=== PATIENT | male | born 1945 | race Caucasian/White ===

== ENCOUNTER → 2016-08-22 07:49 | Outpatient (CLI) | payer MEDICARE, OTHER | LOC: D.MRI 07:49 | DX: M54.2 Cervicalgia (principal); R20.0 Anesthesia of skin ==

== ENCOUNTER → 2016-09-01 14:55 | Outpatient (CLI) | payer MEDICARE, OTHER ==
[~2016-09-01 14:55] MED LIST: ASPIRIN EC325 M1 PO; FLOMAX0.4 MG PO; HYDROCODONE-APA1 TAB PO; NIASPAN500 MG PO; PRINIVIL20 MG PO; TENORMIN25 MG PO; VALIUM SYR10 MG/2 ML PO; ZANTAC150 MG PO; ZOCOR40 MG PO
== END | disposition home or self-care (01) ==
LOC: D.US 14:55
DX: I74.5 Embolism and thrombosis of iliac artery (principal)

== ENCOUNTER → 2016-10-16 14:47 | Outpatient (CLI) | payer MEDICARE, OTHER | END | disposition home or self-care (01) | LOC: D.CT 14:47 | DX: M48.02 Spinal stenosis, cervical region (principal) ==

== ENCOUNTER 2016-11-19 05:25 | Inpatient (IN) | payer MEDICARE, OTHER ==
[2016-11-17 16:58] LABS: BASOPHILS 0.7 % (0-2); EOSINOPHILS 1.2 % (0-7); HEMATOCRIT 45.1 % (42.0-54.0); HEMOGLOBIN 15.4 g/dL (13.5-17.5); IMMATURE GRANULOCYTES 0.6 % (0-5); LYMPHOCYTES 49.5 % (15-50); MCH 32.3 pg (26.0-34.0); MCHC 34.1 g/dL (31.0-37.0); MCV 94.5 fL (80.0-100.0); MEAN PLATELET VOLUME 10.5 fL (7.4-10.4); MONOCYTES 11.2 % (2-11); NEUTROPHILS 36.8 % (40-80); PLATELET COUNT 136 10x3/uL (130-400); RBC 4.77 10x6/uL (4.20-6.10); RDW 12.5 % (11.5-14.5); WBC 7.3 10x3/uL (4.8-10.8)
[2016-11-17 17:06] LABS: APPEARANCE CLEAR (CLEAR); BILIRUBIN NEGATIVE (NEGATIVE); COLOR YELLOW (YELLOW); GLUCOSE NEGATIVE (NEGATIVE); KETONE NEGATIVE (NEGATIVE); LEUKOCYTE ESTERASE NEGATIVE (NEGATIVE); NITRITE NEGATIVE (NEGATIVE); PROTEIN NEGATIVE (NEGATIVE); SPECIFIC GRAVITY 1.015 (1.005-1.020); UROBILINOGEN NORMAL (NORMAL)
[2016-11-17 17:22] LABS: ANION GAP 11.1 mmol/L (8-16); CALCIUM 9.1 mg/dL (8.5-10.1); CARBON DIOXIDE 29.2 mmol/L (21.0-32.0); CREATININE - SERUM 1.2 mg/dL (0.6-1.3); POTASSIUM - SERUM 4.3 mmol/L (3.5-5.1)
[2016-11-19] VITALS (14 sets, daily range): BP systolic 126–179; BP diastolic 63–88; Ht 172.7 cm; Wt 71.8 kg
[~2016-11-19] VITALS: Ht 172.7 cm; Wt 71.8 kg
[~2016-11-19 05:25] MED LIST changes: -VALIUM SYR10 MG/2 ML PO
--- NOTE | 2016-11-19 14:45 | NUR ---
RECIEVED PT FROM PACU. VSS AT THIS TIME, SLIGHTLY HYPERTENSIVE WITH SBP OF 172. PT AAO, SLIGHTLY DROWSY BUT ABLE TO FOLLOW COMMANDS APPROPRIATLY. RECIEVING O2 AT 2L VIA NC. NUERO CHECKS COMPLETE WITH NO ISSUES NOTED. INCISION TO ANTERIOR NECK SEALED WITH DERMABOND. NO SWELLING OR BLEEDING NOTED TO SITE. CHRISTOPH DRAIN LOCATED NEXT TO INCISION WITH BLOODY DRAINAGE. BULB COMPRESSED. FULL ASSESSMENT COMPLETE PER FLOWSHEET. CALL LIGHT IN REACH. BED IN LOW POSITION. WILL CONT TO ASSESS.
--- NOTE | 2016-11-19 14:45 | NUR ---
[employer]EN[employer] CALLED FOR SOFT CERVICAL COLLAR.
--- NOTE | 2016-11-19 15:00 | NUR ---
SAPNA LORENZO PAGED IN REGARDS TO NEW ADMITS FROM OR TO CVICU.
--- NOTE | 2016-11-19 16:28 | NUR ---
FAMILY AT BEDSIDE. UPDATE PROVIDED. VSS REMAIN STABLE. HYDROCODONE ADMINISTERED PER EMAR FOR INCISIONAL PAIN. WILL REASSESS PAIN.
--- NOTE | 2016-11-19 18:00 | NUR ---
FAMILY AT BEDSIDE. PT DENIES NEEDS. BEDSIDE TABLE IN REACH WITH PERSONAL BELONGING'S AND CALL LIGHT. WILL CONT TO ASSESS.
--- NOTE | 2016-11-19 19:00 | NUR ---
REPORT RECEIVED AND ASSESSMENT COMPLETED PT OF DR YEBOAH. C4-C6 ACF. PT HAS INCISION ON MID NECK WITH DERMABOND PRESENT. NO SIGNS OF INFECTION CDI. CHRISTOPH DRAIN IN LEFT NECK WITH 20ML OUT DURING DAY SHIFT. ALL NEURO CHECKS WNL AND VSS. WILL MONITOR FOR CHANGES THROUGHOUT SHIFT.
--- NOTE | 2016-11-19 21:00 | NUR ---
2100 MEDS GIVEN. NO OTHER CHANGES IN STATUS AT THIS TIME. VSS. WILL CONTINUE TO MONITOR THROUGHOUT SHIFT
--- NOTE | 2016-11-19 23:00 | NUR ---
REASSESSMENT COMPLETED SEE FLOWSHEET FOR FULL DETAILS. PT HAS HAD SOME PAC'S AND PVC'S SPORADICALLY SINCE LAST ASSESSMENT. SINUS ARRHYTHMIA WILL REPORT TO DAY SHIFT IN AM AND MONITOR CLOSELY FOR NEED TO CONTACT PHYSICIAN. VSS.
[2016-11-20] VITALS (13 sets, daily range): BP systolic 136–158; BP diastolic 56–85
--- NOTE | 2016-11-20 01:13 | NUR ---
NO CHANGE IN STATUS AT THIS TIME. PT RESTING IN ROOM. VSS. PT STILL HAVING ARRHYTHMIAS THOUGH THEY ARE NOT WORSENING. WILL CONTINUE TO MONITOR
--- NOTE | 2016-11-20 03:08 | NUR ---
REASSESSMENT COMPLETED SEE FLOWSHEET FOR FULL DETAILS. SINCE LAST ASSESSMENT PT HAS HAD INCREASED AMOUNTS OF PVC'S WILL EVALUATE POTASSIUM AND MAG LEVELS WITH LABS. NO OTHER CHANGES AT THIS TIME. VSS WILL MONITOR
[2016-11-20 03:31] LABS: ALBUMIN 3.4 g/dL (3.4-5.0); ANION GAP 14.9 mmol/L (8-16); BILIRUBIN - TOTAL 0.4 mg/dL (0.2-1.3); CALCIUM 8.9 mg/dL (8.5-10.1); CARBON DIOXIDE 25.5 mmol/L (21.0-32.0); CREATININE - SERUM 1.2 mg/dL (0.6-1.3); POTASSIUM - SERUM 4.4 mmol/L (3.5-5.1); PROTEIN - SERUM 6.9 g/dL (6.4-8.2)
--- NOTE | 2016-11-20 05:11 | NUR ---
I&O COLLECTED. 5M OUT OF CHRISTOPH DRAIN FOR SHIFT. 20 ML OUT OF DRAIN DURING DAY SHIFT. ALL NEURO CHECKS STILL NORMAL. WILL CONTINUE TO MONITOR.
[2016-11-20] MEDS ORDERED: VALIUM SYR10 MG/2 ML PO (07:12)
[2016-11-20] MEDS ORDERED: HYDROCODONE-APA1 TAB PO (07:13)
--- NOTE | 2016-11-20 07:15 | NUR ---
REPORT RECIEVED FROM YARD ASSOCIATE NURSE. PT RESTING IN BED QUIETLY. INCISION TO ANTERIOR NECK INTACT AND OPEN TO AIR. CHRISTOPH DRAIN TO LEFT SIDE OF INCISION. COMPRESSED AND DRAINING SEROUS DRAINAGE. NUERO CHECKS COMPLETE WITHIN NORMAL LIMITS. CALL LIGHT IN REACH. FULL ASSESSMENT DOCUMENTED IN FLOWSHEET. REFER FOR DETAIL. WILL CONT TO ASSESS FOR CHANGES THROUGHOUT SHIFT.
--- NOTE | 2016-11-20 09:00 | NUR ---
FAMILY AT BEDSIDE. DENIES NEEDS AT THIS TIME. NO CHANGES NOTED. WILL CONT TO ASSESS.
--- NOTE | 2016-11-20 11:00 | NUR ---
AWAITNG CONSULATION FROM CARDIOLOGY.
--- NOTE | 2016-11-20 14:36 | NUR ---
* Is the patient Alert and Oriented? Yes 0 * How many steps to enter\exit or inside your home? 0 0 * PCP Dr. Yen 0 * [facility] on 0 * Preadmission Environment Home with Family 0 * ADLs Independent 0 * List name and contact numbers for known caregivers / representatives who currently or will assist patient after discharge: Spouse - Fernanda Flanagan [phone] 0 * Additional services required to return to the preadmission environment? No 0 * Can the patient safely return to the preadmission environment? Yes 0 * Has this patient been hospitalized within the prior 30 days at any hospital? No 11/20/2016 14:36 DCP: Discharge Planning Patient Name: MARBIN SAMSON Admission Status: Elective Accout number: [id number] Admission Date: 11-19-2016 : 1945 Admission Diagnosis: Attending: TANIYA Current LOS: 1 Anticipated DC Date: 11-20-2016 Planned Disposition: Home Primary Insurance: MEDICARE A & B Discharge Planning Comments: CM met with patient to assess dc plans/needs. Patient states he lives at home with his . He reports he is independent with all ADL's & IADL's. He does not use any assistive devices for mobility & has not had home health services in the past. At discharge, he will return home with his . No needs identified or verbalized at this time. CM will follow. Spray Painter Helper: Louise Lam
--- NOTE | 2016-11-20 14:45 | NUR ---
DR. MACHADO AT BEDSIDE FOR CARDIOLOGY CONSULT.
--- NOTE | 2016-11-20 14:50 | NUR ---
DR. MARQUIS STATED TO PT TO ONLY TAKE HALF OF HIS 25MG PERSCRIPTION FOR ATENALOL DUE TO HIS BRADYCARDIA. DOCTOR DID NOT WRITE NEW SCRIPT. STATED TO FOLLOW UP WITH HIM IN ONE MONTH.
--- NOTE | 2016-11-20 15:15 | NUR ---
DENIED QUESTIONS REGARDING D/C INSTRUCTIONS. TAKEN TO VEHICLE PER W/C.
--- NOTE | 2016-11-20 15:30 | NUR ---
DR. YEBOAH CALLED AND CLARIFIED RX FOR VALIUM. ORDERED AN INJ AND MEANT TO BE ORDERED PO PILL. PHARMACIST CALLED WITH CLARIFICATION.
== END 2016-11-20 15:30 | disposition home or self-care (01) | DRG 30 ==
LOC: D.SDCHOLD 05:25 → D.CVICU 05:25 → D.SDCHOLD 08:45 → D.CVICU 14:00
PROVIDERS: ADMIT Neurological Surgery
PROC: 0RG20Z0 (ICD-10-PCS; 2016-11-19)
PROC: 0RB30ZZ Excision of Cervical Vertebral Disc, Open Approach (ICD-10-PCS; principal; 2016-11-19 10:00)
DX: M54.12 Radiculopathy, cervical region (principal); R00.1 Bradycardia, unspecified; I49.3 Ventricular premature depolarization

== ENCOUNTER → 2016-12-26 08:18 | Outpatient (CLI) | payer MEDICARE, OTHER ==
[2016-11-19 14:57] VITALS: BMI 25.0
[~2016-12-26 08:18] MED LIST changes: +VALIUM SYR10 MG/2 ML PO
== END | disposition home or self-care (01) ==
LOC: D.RAD 08:15
DX: M43.22 Fusion of spine, cervical region (principal)

== ENCOUNTER 2017-04-29 09:14 | Outpatient (CLI) | payer MEDICARE, OTHER ==
[~2017-04-29] VITALS: Ht 172.7 cm; Wt 75.0 kg
--- NOTE | ~2017-04-29 | HEMODYNAMI ---
PATIENT:MARBIN SAMSON MEDICAL RECORD: [id number] : 41 LOCATION:[facility] ADMISSION DATE: 04/29/17 Generatedon:04/29/201711:33 Patient name: MARBIN SAMSON Patient #: [id number] SSN: : 1945 Date of study: 04/29/2017 Page: Of Hemodynamic Procedure Report Patient Data Patient Demographics Procedure consent was obtained First Name: MARBIN Gender: Male Last Name: CHAPIN : 1945 Middle Initial: A Age: 72 year(s) Patient #: [id number] Race: Unknown Additional ID: [id number] Contact details [address]: [address] [place] [place] [address] State: [place] City: [place] Zip code: [address] Admission Admission Data Admission Date: 04/29/2017 Admission Time: 9:14 Procedure Procedure Types Cath Procedure Diagnostic Procedure LHC LHC w/Coronaries PCI Procedure Coronary Stent Coronary Stent Initial Coronary Stent Additional Miscellaneous Procedures Moderate Sedation up to 15 minutes Peripheral Cath Diagnostic Procedure Cath Peripheral Ompjw-Xukxkjv-Eqf-Off Procedure Description Procedure Date Procedure Date: 04/29/2017 Procedure Start Time: 11:10 Procedure End Time: 11:31 Procedure Staff Name Function Ector Monteiro MD Performing Physician Maddison Peters RT Monitor Dina Dutta RT Scrub Reji Tavares RN Nurse Sara Ayala RN Nurse Procedure Data Cath Procedure Fluoroscopy Diagnostic fluoroscopy Total fluoroscopy Time: 4.4 time: 4.4 min min Diagnostic fluoroscopy Total fluoroscopy dose: 609 dose: 609 mGy mGy Contrast Material Contrast Material Type Amount (ml) Isovue 300 146 Entry Location Entry Primary Successful Side Size Upsize Upsize Entry Closure Succes sful Closure Location (Fr) 1 (Fr) 2 (Fr) Remarks Device Remarks Femoral Right 5 Fr 6 Fr Exoseal artery Short Estimated blood loss: 10 ml Diagnostic catheters Device Type Used For End Catheter Placement MULTIPACK Pigtail 5 Fr Procedure catheter MULTIPACK JL 4.0 5Fr Procedure catheter MULTIPACK 3DRC 5Fr Procedure catheter Procedure Complications No complications Procedure Medications Medication Administration Route Dosage Oxygen NC 2 l/min Lidocaine 2% added to field 20 Heparin Flush Bag added to field 2 bags (1000units/500ml NS) 0.9% NaCl I.V. 100 ml/hr Fentanyl I.V. 50 mcg Versed I.V. 1 mg Versed I.V. 1 mg Fentanyl I.V. 50 mcg Heparin Bolus I.V. 4000 units Fentanyl I.V. 50 mcg Hemodynamics Rest Pre Cath Intra NCS Post Cath Vital Signs Time Heart Resp SPO2 etCO2 NIBP (mmHg) Rhythm Pain Sedation Rate (ipm) (%) (mmHg) Status Level (bpm) 11:00:18 59 25 100 26.4 179/75(121) NSR 0 (11) 10(A) , No pain 11:04:41 60 16 100 32.5 175/82(142) NSR 0 (11) 10(A) , No pain 11:09:03 61 14 95 37 147/74(114) NSR 0 (11) 10(A) , No pain 11:13:25 66 14 97 2.2 135/63(106) NSR 0 (11) 9(A) , No pain 11:17:39 76 16 96 0 151/74(113) NSR 0 (11) 9(A) , No pain 11:21:55 74 14 97 10.5 130/65(91) NSR 0 (11) 9(A) , No pain 11:26:09 75 16 97 0.7 147/68(115) NSR 0 (11) 10(A) , No pain 11:30:27 71 13 97 2.2 130/63(92) NSR 0 (11) 10(A) , No pain Medications Time Medication Route Dose Verified Delivered Reason Notes Effectiveness by by 10:57:23 Oxygen NC 2 Ector Ruiz used for l/min Cayetano Ayala RN procedure 10:57:30 Lidocaine 2% added 20ml Ector Barney for local to vial Cayetano Monteiro MD anesthetic field 10:57:37 Heparin Flush added 2 Ector Bowmanrey used for Bag to bags Cayetano Monteiro MD procedure (1000units/500ml field NS) 10:57:47 0.9% NaCl I.V. 100 Ector Sara Per physician ml/hr Cayetano Ayala RN 11:08:13 Fentanyl I.V. 50 Ector Ruiz for sedation mcg Cayetano Ayala RN 11:08:23 Versed I.V. 1 mg Ector Ruiz for sedation Cayetano Ayala RN 11:09:43 Versed I.V. 1 mg Ector Ruiz for sedation Cayetano Ayala RN 11:09:56 Fentanyl I.V. 50 Ector Ruiz for sedation mcg Cayetano Ayala RN 11:17:39 Heparin Bolus I.V. 4000 Ector Ruiz for verifi ed units Cayetano Ayala RN anticoagulation with dr monteiro 11:23:29 Fentanyl I.V. 50 Ector Ruiz for sedation mcg Cayetano Ayala RN Procedure Log Time Note 10:56:52 Maddison Peters RT(R) sent for patient. Start room use. 10:56:53 Time tracking: Regular hours 10:56:57 Plan of Care:Hemodynamics will remain stable., Cardiac rhythm will remain stable., Comfort level will be maintained., Respiratory function will remain adequate., Patient/ family verbilizes understanding of procedure., Procedure tolerated without complication., Recovers from procedure without complications.. 10:57:03 Patient received from Pre/Post Procedure Room to CCL 2 Alert and oriented. Tansferred to table in Supine position. 10:57:05 Warm blankets applied, and ed hugger turned on for patient comfort. 10:57:05 Warm blankets applied, and ed hugger turned on for patient comfort. 10:57:05 Correct patient and procedure confirmed by team. 10:57:07 Signed procedure consent form obtained from patient. 10:57:11 Full Disclosure recording started 10:57:22 H&P Date Dictated: 04/29/2017 H&P Addendum completed by physician on day of procedure. (MUST COMPLETE FOR ALL OUTPATIENTS), New H&P dictated by physician.. 10:57:23 Oxygen 2 l/min NC was administered by Sara Ayala RN; used for procedure; 10:57:23 Pre-procedure instructions explained to patient. 10:57:23 Pre-op teaching completed and patient verbalized understanding. 10:57:25 Family in waiting room. 10:57:26 Patient NPO since Midnight. 10:57:30 Lidocaine 2% 20ml vial added to field was administered by Ector Monteiro MD; for local anesthetic; 10:57:36 Is the patient allergic to Iodine/contrast media? No. 10:57:37 Heparin Flush Bag (1000units/500ml NS) 2 bags added to field was administered by Ector Monteiro MD; used for procedure; 10:57:37 Was the patient premedicated? No 10:57:42 Is patient on blood thinner?Yes 10:57:44 ACC The patient was administered the following blood thiners within the last 24 hours: ACCPlavix 10:57:47 0.9% NaCl 100 ml/hr I.V. was administered by Sara Ayala RN; Per physician; 10:57:47 Patient diabetic? No. 10:57:50 Previous problem with sedation/anesthesia? No ? 10:57:52 Snore? Yes 10:57:53 Sleep apnea? No 10:57:54 Deviated septum? No 10:57:54 Opens mouth fully? Yes 10:57:55 Sticks out tongue? Yes 10:57:57 Airway obstruction? No ? 10:58:00 Vital chart was started 10:58:01 Dentures? Yes out 10:58:05 Pre procedure: right dorsailis pedis pulse 1+ Palpable, but thready & weak; easily obliterated 10:58:09 Pre procedure: left dorsailis pedis pulse Doppler 10:58:12 Patient pain scale 0/10 ?. 10:58:21 IV patent on arrival in left wrist with 0.9% NaCl at KVO. 10:58:30 Bilateral groins area was prepped with chlora-prep and draped in sterile fashion 10:58:31 Sharps counted by scrub and verified by R.N. 10:58:32 Alarms reviewed by R. N. 11:07:19 Physician paged 11:07:37 Physician arrived 11:07:38 --------ALL STOP TIME OUT------ 11:07:44 Final Timeout: patient, procedure, and site verified with staff and physician. All members of the team are in agreement. 11:07:50 Bilateral groins site verified by team. 11:08:04 Physical assessment completed. ASA score P 2 - A patient with mild systemic disease as per Ector Monteiro MD. 11:08:13 Fentanyl 50 mcg I.V. was administered by Sara Ayala RN; for sedation; 11:08:23 Versed 1 mg I.V. was administered by Sara Ayala RN; for sedation; 11:09:30 Zero performed for pressure channel P1 11:09:43 Versed 1 mg I.V. was administered by Sara Ayala RN; for sedation; 11:09:54 Sedation plan: IV Moderate Sedation Medication:Versed, Fentanyl 11::56 Fentanyl 50 mcg I.V. was administered by Sara Ayala RN; for sedation; 11:09:59 Procedure started. 11:10:48 Local anesthetic to right femoral artery with Lidocaine 2% by Ector Monteiro MD.INITIAL ACCESS ONLY 11:10:51 Use device set Femoral Dx 11:10:53 ACIST Syringe (21689) opened to sterile field. 11:10:53 Bag Decanter (2002S) opened to sterile field. 11:10:53 Medline Cath Pack ([id number]) opened to sterile field. 11:10:54 SHEATH 5FR Rozet (ZNS827) opened to sterile field. 11:10:56 DIAGNOSTIC WIRE .035 260cm J wire (990488) opened to sterile field. 11:10:57 ACIST Hand Control (64399) opened to sterile field. 11:10:57 ACIST Manifold (23734) opened to sterile field. 11:10:58 DIAGNOSTIC Multipack 5Fr catheter set (KS8846) opened to sterile field. 11:10:59 Tegaderm 4 x 4 (1626W) opened to sterile field. 11:10:59 PERCUTANEOUS ENTRY 19GA needle opened to sterile field. 11:11:12 A 5 Fr sheath was inserted into the Right Femoral artery 11:12:05 A MULTIPACK Pigtail 5 Fr catheter was advanced over the wire and used for Procedure. 11:12:20 LV angiography performed. 11:12:36 EF : 60 % 11:12:38 Catheter removed. 11:12:58 Abdominal Aortagram was performed. 11:13:36 Left leg runoff performed. 11:13:38 Right leg runoff performed. 11:13:46 Catheter removed. 11:14:32 A MULTIPACK JL 4.0 5Fr catheter was advanced over the wire and used for Procedure. 11:15:15 LCA angiography performed. 11:15:21 Catheter removed. 11:15:31 A MULTIPACK 3DRC 5Fr catheter was advanced over the wire and used for Procedure. 11:16:19 INFLATOR Merit BasixCompak (OR3479) opened to sterile field. 11:16:20 SHEATH 6FR Rozet (KYK092) opened to sterile field. 11:16:35 RCA angiography performed. 11:16:44 Catheter removed. 11:16:48 Proceeding to intervention. ::59 Sheath upsized to a 6 Fr Short. 11:17:39 Heparin Bolus 4000 units I.V. was administered by Sara Ayala RN; for anticoagulation; verified with dr monteiro 11:19:21 WHISPER 300cm guide wire ([id number]) opened to sterile field. 11:19:22 GUIDE 6FR XB 3.5 catheter ([id number]) opened to sterile field. 11:19:43 XB 3.5 wire advanced. 11:19:45 Wire advanced across lesion. 11:22:19 Inflation Number: 1 A JUNE OTW 2.25 x 15 stent ([id number]) was prepped and advanced across the 1st Ob Jennifer. The stent was deployed at 15 KAYLAN for 0:10 (min:sec). 11:22:32 Wire redirected to cx. 11:23:29 Fentanyl 50 mcg I.V. was administered by Sara Ayala RN; for sedation; ::46 Inflation Number: 1 A JUNE OTW 2.25 x 15 stent ([id number]) was prepped and advanced across the Mid CX. The stent was deployed at 11 KAYLAN for 0:10 (min:sec). ::31 Inflation number: 2 The stent balloon was then re-inflated across the Mid CX to 0 KAYLAN for 0:00 (min:sec). 11:26:01 Balloon removed over the wire. 11:26:06 Wire removed. 11:26:26 EXOSEAL 6Fr (EX600) opened to sterile field. 11::41 Sheath removed intact; hemostasis achieved with Exoseal to the Right Femoral artery. 11:26:45 Procedure ended.(Physican Out) 11::55 Fluoroscopy time 04.40 minutes. ::59 Flurop Dose total: 609 11::59 Fluoroscopy dose: 609 mGy 11:27:05 Contrast amount:Isovue 300 146ml. 11:27:06 Sharps counted by scrub and verified by R.N. 11:27:08 Insertion/operative site no bleeding no hematoma. 11:27:10 Post Procedure Pulses reassessed and unchanged 11:27:16 Post-procedure physical assessment completed. ASA score P 2 - A patient with mild systemic disease as per Ector Monteiro MD. 11::27 Post procedure rhythm: unchanged. 11:27:30 Estimated blood loss: 10 ml 11:30:43 Procedure type changed to Cath procedure, Diagnostic procedure, LHC, LHC w/Coronaries, PCI procedure, Coronary Stent, Coronary Stent Initial, Coronary Stent Additional, Miscellaneous Procedures, Moderate Sedation up to 15 minutes, Peripheral Cath Diagnostic Procedure, Cath Peripheral, Fkzie-Osfuqcp-Dzt-Off 11:30:45 Procedure and supply charges have been captured, reviewed, submitted and are correct. 11:31:16 Procedure Complication : No complications 11:31:19 Vital chart was stopped 11:31:39 See physician's report for complete and final results. 11:31:41 Report given to Pre/Post Procedure Room. 11:31:48 Patient transfered to Pre/Post Procedure Room with Stretcher. 11:31:50 Procedure ended. 11:31:50 Full Disclosure recording stopped 11::55 End room use (Document Last) 11:32:05 ACC-PCI Only Patient was given prescriptions, or instructed by Ector Monteiro MD to start/continue the following medications upon discharge: Plavix Intervention Summary Intervention Notes Time ActionType Lesion and Equipment Action# Pressure Duration Attributes Used 11:22:19 Place stent 1st Ob Jennifer JUNE OTW 2.25 1 15 00:10 x 15 stent ([id number]) 11:23:46 Place stent Mid CX JUNE OTW 2.25 1 11 00:10 x 15 stent ([id number]) 11:25:31 Reinflate Mid CX JUNE OTW 2.25 2 0 00:00 stent x 15 stent balloon ([id number]) Device Usage Item Name Manufacture Quantity Catalog Hospital Part Current Minim al Lot# / Number Charge Number Stock Stock Serial# Code ACIST Syringe Acist 1 [id number] 336903 574124 682202 20 (35517) Medical Systems Inc Bag Decanter Microtek 1 2001S 708592 41616 051026 5 (2001S) Medical Inc. Medline Cath Cardinal 1 [id number] 064820 13012 084907 5 Pack Health ([id number]) SHEATH 5FR Terumo 1 HPL494 213373 514688 426980 40 Rozet (EIR172) DIAGNOSTIC St Paddy 1 659486 187102 972619 637538 30 WIRE .035 260cm J wire (263505) ACIST Hand Acist 1 10223 234355 614342 728218 5 Control Medical (01469) Systems Inc ACIST Acist 1 62640 625732 385604 293088 5 Manifold Medical (97756) Systems Inc DIAGNOSTIC Cardinal 1 YJ8905 783734 05372 835182 30 Multipack 5Fr Health catheter set (UX5131) Tegaderm 4 x 3M 1 1626W 971527 680652 755553 5 4 (1626W) PERCUTANEOUS [facility] 1 [id number] 962720 244328 5 ENTRY 19GA needle MULTIPACK Cardinal 1 325839 5 Pigtail 5 Fr Health catheter MULTIPACK JL Cardinal 1 376071 5 4.0 5Fr Health catheter MULTIPACK Cardinal 1 836068 5 3DRC 5Fr Health catheter INFLATOR Merit 1 [id number] 229527 465622 939147 15 Smailex Medical BasixCompak (ST2824) SHEATH 6FR Terumo 1 CQX856 506935 193226 789273 40 Rozet (ENC670) WHISPER 300cm De Jesus 1 [id number] 656934 987680 565038 5 guide wire Vascular ([id number]) GUIDE 6FR XB Cardinal 1 [id number] 731890 158570 000153 2 3.5 catheter [email or web address] ([id number]) JUNE OTW 2.25 Medtronic 2 [id number] 509530 68180 955663 5 [id number] x 15 stent [id number] ([id number]) EXOSEAL 6Fr Cardinal 1 EX600 529187 686092 772488 10 (EX600) Health Signature Audit [place] Stage Time Signature Unsigned Intra-Procedure 04/29/2017 Maddison Peters 11:33:19 AM RT(R) Signatures Monitor : Maddison Peters Signature : RT Date : Time : [address] [place] [address]
[2017-04-29] MEDS ORDERED: BAYER CHEWABLE81 MG PO (09:36)
[2017-04-29] MEDS ORDERED: ZYLOPRIM100 MG PO (09:37)
[2017-04-29] MEDS ORDERED: HYDROCHLOROTHIA25 MG PO (09:37)
[2017-04-29] MEDS ORDERED: METOPROLOL TART25 MG PO (09:37)
[2017-04-29] MEDS ORDERED: NAPROSYN500 MG PO (09:38)
[2017-04-29] MEDS ORDERED: CRESTOR10 MG PO (09:39)
[2017-04-29] MEDS ORDERED: PLAVIX75 MG PO (09:42)
[2017-04-29 10:03] VITALS: BP 139/67; Ht 172.7 cm; Wt 75.0 kg
[2017-04-29 10:04] LABS: BASOPHILS 0.6 % (0-2); EOSINOPHILS 2.5 % (0-7); HEMATOCRIT 48.9 % (42.0-54.0); HEMOGLOBIN 16.8 g/dL (13.5-17.5); IMMATURE GRANULOCYTES 0.7 % (0-5); LYMPHOCYTES 23.8 % (15-50); MCH 32.7 pg (26.0-34.0); MCHC 34.4 g/dL (31.0-37.0); MCV 95.3 fL (80.0-100.0); MEAN PLATELET VOLUME 12.6 fL (7.4-10.4); MONOCYTES 7.1 % (2-11); NEUTROPHILS 65.3 % (40-80); RBC 5.13 10x6/uL (4.20-6.10); RDW 12.7 % (11.5-14.5)
[2017-04-29 10:08] LABS: PLATELET COUNT 102 10x3/uL (130-400)
[2017-04-29 10:11] LABS: ANION GAP 12.4 mmol/L (8-16); CALCIUM 8.8 mg/dL (8.5-10.1); CARBON DIOXIDE 27.1 mmol/L (21.0-32.0); CREATININE - SERUM 1.3 mg/dL (0.6-1.3); POTASSIUM - SERUM 3.5 mmol/L (3.5-5.1)
--- NOTE | 2017-04-29 12:00 | NUR ---
2L NC, NO RESP DISTRESS. RIGHT GROIN 6F EXOSEAL CDI, NO BLEEDING OR HEMATOMA NOTED. VSS. NO C/O NAUSEA OR PAIN. FAMILY AT BEDSIDE, CALL LIGHT WITHIN REACH.
--- NOTE | 2017-04-29 12:30 | NUR ---
RESTING QUIETLY WITH EYES CLOSED. NO C/O AT THIS TIME. RIGHT GROIN 6F EXOSEAL CDI, NO BLEEDING OR HEMATOMA NOTED. 2L NC, NO RESP DISTRESS. FAMILY AT BEDSIDE, WILL CONTINUE TO MONITOR CLOSELY.
--- NOTE | 2017-04-29 13:00 | NUR ---
RIGHT GROIN 6F EXOSEAL CDI, NO BLEEDING OR HEMATOMA NOTED. 2L NC, NO RESP DISTRESS. VSS. NO C/O PAIN OR NAUSEA. CALL LIGHT WITHIN REACH.
--- NOTE | 2017-04-29 14:00 | NUR ---
RESTING QUIETLY WITH EYES CLOSED. VSS. NO C/O PAIN OR NAUSEA. RIGHT GROIN 6F EXOSEAL CDI, NO BLEEDING OR HEMATOMA NOTED. CALL LIGHT WITHIN REACH.
--- NOTE | 2017-04-29 15:15 | NUR ---
HOB ELEVATED 30 DEGREES. RIGHT GROIN 6F EXOSEAL CDI, NO BLEEDING OR HEMATOMA NOTED. DRINK AND SANDWICH TRAY GIVEN, NO C/O NAUSEA. VSS.
--- NOTE | 2017-04-29 15:45 | NUR ---
LEFT HAND PIV D/C'D WITH CATHETER INTACT, BAND AID TO SITE. UP TO BEDSIDE TO GET DRESSED.
--- NOTE | 2017-04-29 15:50 | NUR ---
AMBULATED TO RESTROOM TO VOID.
--- NOTE | 2017-04-29 15:55 | NUR ---
DISCHARGE INSTRUCTIONS GIVEN, VERBALIZED UNDERSTANDING.
--- NOTE | 2017-05-05 12:15 | HP ---
PATIENT: MARBIN SAMSON MEDICAL RECORD: [id number] ACCOUNT: [id number] LOCATION:[facility] : 41 ADMISSION DATE: 04/29/17 HISTORY AND PHYSICAL EXAMINATION DIAGNOSES: 1. Angina. 2. Claudication. 3. Abnormal DONN. 4. Hypertension. 5. Hyperlipidemia. HISTORY OF PRESENT ILLNESS: Mr. Samson was having leg pain and claudication, left leg greater than right and had a critical DONN in the left leg suggestive for limb threatening ischemia. He was sent to Dr. Carreno. He also complained of ongoing chest discomfort compatible with angina. We will now proceed with coronary angiography as well as lower extremity angiography. PHYSICAL EXAMINATION: GENERAL APPEARANCE: Well-nourished, well-developed, appears stated age. Level of distress, comfortable. PSYCHIATRIC: Mental status, alert, normal affect. Orientation, oriented to time, place and person. EYES: Lids and conjunctiva, noninjected. No discharge, no pallor. ENT: Lips, teeth, gums, normal dentition. Oropharynx, no cyanosis, no pallor. NECK: Carotid arteries, bilateral normal upstroke, no bruits, no thrills. JUGULAR VEINS: No jugular venous pressure or distention. CERVICAL LYMPH NODES: Nontender, nonenlarged. THYROID: Not enlarged. Nontender. No nodules. LUNGS: Respiratory effort, unlabored. CHEST: Normal curvature. No thoracic deformity. No chest wall tenderness. Percussion, resonant. Auscultation, clear. No wheezes, no rales, no rhonchi. CARDIOVASCULAR: Precordial exam, nondisplaced. No heaves or pericardial thrills. Rate and rhythm, regular. Heart sounds, normal S1, normal S2. No S3, no gallop, no rub. Systolic murmur, not heard. Diastolic murmur, not heard. EXTREMITIES: No cyanosis, no edema. Peripheral pulses, full and equal in all extremities, except as noted. No bruits appreciated. ABDOMEN: Soft, nondistended. Normal aorta. No bruit. Nontender. No masses. Liver, nontender, no hepatomegaly. Spleen, nontender, no splenomegaly. MUSCULOSKELETAL: No joint tenderness. No joint swelling. No erythema. NEUROLOGICAL: Normal gait, normal strength, normal tone. SKIN: Warm and dry. REVIEW OF SYSTEMS: The patient reports easy bruising but reports no swollen glands. The patient reports no fever, no night sweats, no significant weight gain, no significant weight loss. No significant exercise tolerance. The patient reports no dry eyes, no irritation, no vision change. Patient reports no difficulty hearing and no ear pain. Patient reports no frequent nose bleeds or nose and sinus problems. Patient reports on arm pain on exertion. No shortness of breath while lying down. No history of heart murmur. Patient reports no cough, no wheezing or coughing up blood. Patient reports no abdominal pain, no vomiting. Normal appetite. No diarrhea and not vomiting blood. No nausea and no constipation. Patient reports no incontinence. No difficulty urinating. No hematuria. No increased frequency. Patient reports no muscle aches. No weakness, no arthralgias, no back pain. No swelling of the HISTORY AND PHYSICAL [id number] MARBIN SAMSON extremities. Patient reports no abnormal mole, no jaundice, no rashes. Reports no loss of consciousness. No weakness and no numbness. No seizures, dizziness, or headaches. The patient reports no depression, no sleep disturbance, feeling safe in a relationship and no alcohol abuse. Patient reports on fatigue. Reports no runny nose or sinus pressure. No itching, no hives, and no frequent sneezing. OVERALL IMPRESSION: Anginal symptomatology, claudication symptomatology, most likely is hemodynamically significant peripheral vascular disease as well as coronary artery disease. We will proceed with catheterization and aortofemoral runoff. TRANSINT:[id number] Voice Confirmation ID: [id number] DOCUMENT ID: [id number] SHAUNA TERESA MD at 1215 CC: [id number] DICTATION DATE: 04/29/17 1009 GOVERNMENT GAUGER: 04/29/17 1040 DEP CLI 04/29/17 [place] [address]
--- NOTE | 2017-05-05 12:15 | OP ---
PATIENT NAME: MARBIN SAMSON MEDICAL RECORD: [id number] :41 LOCATION:D.CAT ADMISSION DATE: SURGEON: SHAUNA TERESA MD DATE OF OPERATION: 04/29/2017 PROCEDURES: 1. Aortofemoral runoff. 2. Abdominal aortography. INDICATIONS: Claudication and peripheral vascular disease. PROCEDURE IN DETAIL: After informed consent was obtained and after detailed explanation of risks, benefits as well as alternative therapies, the patient elected to proceed with angiogram and aortofemoral runoff. The right femoral area was prepped and draped in normal sterile fashion. The right femoral artery was cannulated via modified Seldinger technique with placement of 6-Malay sheath. All catheters exchanged through this sheath. FINDINGS: Abdominal aortography was performed. The catheter was pulled down for aortofemoral runoff. Abdominal aortography reveals no significant abdominal aortic disease. No dissection or aneurysm formation. No significant renal artery stenosis. RIGHT LEG: A. Iliac: The common internal and external iliacs have mild irregular, but no flow-limiting stenosis. B. Femoral system: The common superficial and deep femoral reveal [id number] irregularities, but no flow-limiting stenosis. C. Popliteal and infrapopliteal vessels are patent, although diffusely diseased. There is 3-vessel runoff to the foot. LEFT LEG: A. Iliac: The common internal and external iliacs were totally closed. B. Femoral system: The common femoral is totally closed in the proximal portion, the distal portion fills via collaterals and this is patent. C. Superficial femoral: Popliteal and infrapopliteal vessels appear to be patent as well. 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 TRANSINT:[id number] Voice Confirmation ID: [id number] DOCUMENT ID: [id number] SHAUNA TERESA MD at 1215 CC: ESA VERAS MD [id number] DICTATION DATE: 04/29/17 1137 INTERNET MARKETING DIRECTOR: 04/29/17 1339 DEP CLI 04/29/17 [facility] [address] [place] [address]
--- NOTE | 2017-05-05 12:15 | OP ---
PATIENT NAME: MARBIN SAMSON MEDICAL RECORD: [id number] :41 LOCATION:D.CAT ADMISSION DATE: SURGEON: SHAUNA TERESA MD DATE OF OPERATION: 04/29/2017 PROCEDURE: 1. PTCA stent left circumflex. 2. PTCA stent first obtuse marginal. 3. Left heart catheterization. 4. Selective coronary angiography. 5. Left ventriculogram. INDICATION: Angina and coronary artery disease. PROCEDURE IN DETAIL: After informed consent was obtained and after detailed explanation of risks, benefits as well as alternative therapies, the patient elected to proceed with angiogram and angioplasty. The right femoral area had a preexisting sheath from peripheral intervention. All catheters exchanged through this sheath. FINDINGS: Left ventriculogram was performed in standard 30-degree WALDRON view, reveals preserved cardiac wall motion, ejection fraction at 35%. SELECTIVE CORONARY ANGIOGRAPHY: 1. Left main showed no significant angiographic disease. 2. Left anterior descending has 80% to 85% stenosis in the mid vessel. 3. Left circumflex has 80% to 85% stenosis in OM1 as well as the circumflex itself. 4. The right coronary has 99% stenosis in the mid vessel. PTCA STENT OF THE LEFT CIRCUMFLEX AND FIRST OBTUSE MARGINAL: Both were addressed with a 2.25 x 15 mm [place] stents. Result was 0% residual stenosis. OVERALL IMPRESSION: Successful percutaneous transluminal coronary angioplasty stent of the left circumflex and obtuse marginal going from 80% to 85% initial stenosis to 0% residual. PLAN: PTCA stent of the RCA and LAD in the near future. TRANSINT:[id number] Voice Confirmation ID: [id number] DOCUMENT ID: [id number] SHAUNA TERESA MD at 1215 CC: [id number] DICTATION DATE: 04/29/17 1137 PRINTED FORMS PROOFREADER: 04/29/17 1340 DEP CLI 04/29/17 [place] [address]
== END 2017-04-29 16:05 | disposition home or self-care (01) ==
LOC: D.CATH 09:14
PROVIDERS: Internal Medicine Interventional Cardiology
DX: I25.119 Atherosclerotic heart disease of native coronary artery with unspecified angina pectoris (principal); I70.212 Atherosclerosis of native arteries of extremities with intermittent claudication, left leg; I70.201 Unspecified atherosclerosis of native arteries of extremities, right leg; I10 Essential (primary) hypertension; E78.5 Hyperlipidemia, unspecified; Z01.812 Encounter for preprocedural laboratory examination
CPT/HCPCS: 93458; C9600; C9601

== ENCOUNTER 2017-05-06 07:54 | Outpatient (CLI) | payer MEDICARE, OTHER ==
[~2017-05-06] VITALS: Ht 172.7 cm; Wt 72.7 kg
--- NOTE | ~2017-05-06 | HEMODYNAMI ---
PATIENT:MARBIN SAMSON MEDICAL RECORD: [id number] : 41 LOCATION:[facility] ADMISSION DATE: 05/06/17 Generatedon:05/06/20179:45 Patient name: MARBIN SAMSON Patient #: [id number] SSN: : 1945 Date of study: 05/06/2017 Page: Of Hemodynamic Procedure Report Patient Data Patient Demographics Procedure consent was obtained First Name: MARBIN Gender: Male Last Name: CHAPIN : 1945 Middle Initial: A Age: 72 year(s) Patient #: [id number] Race: Unknown Additional ID: [id number] Contact details [address]: [address] [place] [address] State: [place] City: [place] Zip code: [address] Admission Admission Data Admission Date: 05/06/2017 Admission Time: 7:54 Procedure Procedure Types Cath Procedure PCI Procedure Coronary Stent Coronary Stent Initial Miscellaneous Procedures Moderate Sedation up to 30 minutes Procedure Description Procedure Date Procedure Date: 05/06/2017 Procedure Start Time: 9:17 Procedure End Time: 9:43 Procedure Staff Name Function Ector Monteiro MD Performing Physician Emory Preciado RN Nurse Cortez George RT Monitor Salena Richardson RT Scrub Procedure Data Cath Procedure Fluoroscopy Diagnostic fluoroscopy Total fluoroscopy Time: 9.2 time: 9.2 min min Diagnostic fluoroscopy Total fluoroscopy dose: 270 dose: 270 mGy mGy Contrast Material Contrast Material Type Amount (ml) Isovue 300 78 Entry Location Entry Primary Successful Side Size Upsize Upsize Entry Closure Lock ccessful Closure Location (Fr) 1 (Fr) 2 (Fr) Remarks Device Remarks Radial 6 Fr Mechanical artery Short Compression Femoral Right 6 Fr Exoseal artery Short Estimated blood loss: 10 ml Procedure Complications No complications Procedure Medications Medication Administration Route Dosage 0.9% NaCl I.V. 100 ml/hr Oxygen NC 2 l/min Heparin Flush Bag added to field 2 bags (1000units/500ml NS) Lidocaine 2% added to field 20 Radial Cocktail added to field (Verapomil 2mg/Nitro 400mcg/Heparin 1500units) Versed I.V. 1 mg Fentanyl I.V. 50 mcg Radial Cocktail I.A. (Verapomil 2mg/Nitro 400mcg/Heparin 1500units) Heparin Bolus I.V. 4000 units Hemodynamics Rest Heart Rate: 43 (bpm) Snapshots Pre Cath Intra NCS Post Cath Vital Signs Time Heart Resp SPO2 etCO2 NIBP (mmHg) Rhythm Pain Sedation Rate (ipm) (%) (mmHg) Status Level (bpm) 9:00:46 55 14 99 31.4 151/91(116) NSR 0 (11) 10(A) , No pain 9:05:31 60 14 100 0 162/84(127) NSR 0 (11) 10(A) , No pain 9:10:20 48 16 100 0 172/77(144) NSR 0 (11) 10(A) , No pain 9:15:09 59 14 98 34.4 159/71(128) NSR 0 (11) 10(A) , No pain 9:19:47 55 16 98 0 113/61(86) NSR 0 (11) 9(A) , No pain 9:24:24 59 13 98 0 124/73(94) NSR 0 (11) 9(A) , No pain 9:29:04 56 14 98 0 129/71(97) NSR 0 (11) 9(A) , No pain 9:33:41 59 13 99 0 123/72(100) NSR 0 (11) 9(A) , No pain 9:38:40 57 12 99 0 Measuring NSR 0 (11) 9(A) , No pain 9:38:58 59 12 99 0 133/68(87) NSR 0 (11) 9(A) , No pain 9:43:37 59 13 100 0 119/75(91) NSR 0 (11) 9(A) , No pain Medications Time Medication Route Dose Verified Delivered Reason Notes Effectiveness by by 9:05:57 0.9% NaCl I.V. 100 Emory Emory Per physician ml/hr Ozzy Preciado RN RN 9:06:10 Oxygen NC 2 Emory Emory Per physician l/min Ozzy Preciado RN RN 9:06:30 Heparin Flush added 2 Emory Emory used for Bag to bags Lorigan Lorigan procedure (1000units/500ml field RN RN NS) 9:06:51 Lidocaine 2% added 20ml Emory Emory for local to vial Lorigan Ozzy anesthetic RN RN 9:08:40 Radial Cocktail added Emory Emory used for (Verapomil to Lorigan Lorigan procedure 2mg/Nitro RN RN 400mcg/Hepari 9:15:13 Versed I.V. 1 mg Emory Emory for sedation Ozzy Preciado RN RN 9:15:24 Fentanyl I.V. 50 Emory Emory for sedation mcg Ozzy Preciado RN RN 9:17:55 Radial Cocktail I.A. Emory Ector for (Verapomil Ozzy Monteiro MD vasodilation 2mg/Nitro RN 400mcg/Hepari 9:23:05 Heparin Bolus I.V. 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 Start room use. 8:45:17 Time tracking: Regular hours 8:45:21 Plan of Care:Hemodynamics will remain stable., Cardiac rhythm will remain stable., Comfort level will be maintained., Respiratory function will remain adequate., Patient/ family verbilizes understanding of procedure., Procedure tolerated without complication., Recovers from procedure without complications.. 8:54:06 Patient received from Pre/Post Procedure Room to CCL 1 Alert and oriented. Tansferred to table in Supine position. 8:54:07 Correct patient and procedure confirmed by team. 8:54:07 Warm blankets applied, and ed hugger turned on for patient comfort. 8:54:09 ECG and BP/O2 sat monitors applied to patient. 8:54:09 Signed procedure consent form obtained from patient. 8:54:10 Full Disclosure recording started 8:59:52 Vital chart was started 9:01:15 Rhythm: sinus rhythm 9:01:26 H&P Date Dictated: 05/06/2017 Within 30 days and on chart., H&P Addendum completed by physician on day of procedure. (MUST COMPLETE FOR ALL OUTPATIENTS). 9:01:28 Pre-op teaching completed and patient verbalized understanding. 9:01:28 Pre-procedure instructions explained to patient. 9:01:51 Family in patients room. 9:01:56 Patient NPO since Midnight. 9:02:03 Is the patient allergic to Iodine/contrast media? No. 9:02:04 Is patient on blood thinner?Yes 9:02:07 ACC The patient was administered the following blood thiners within the last 24 hours: ACCAspirin, ACCPlavix 9:02:10 Patient diabetic? No. 9:05:57 0.9% NaCl 100 ml/hr I.V. was administered by Emory Preciado RN; Per physician; 9:06:10 Oxygen 2 l/min NC was administered by Emory Preciado RN; Per physician; 9:06:30 Heparin Flush Bag (1000units/500ml NS) 2 bags added to field was administered by Emory Preciado RN; used for procedure; 9:06:51 Lidocaine 2% 20ml vial added to field was administered by Emory Preciado RN; for local anesthetic; 9:08:40 Radial Cocktail (Verapomil 2mg/Nitro 400mcg/Heparin 1500units) added to field was administered by Eomry Preciado RN; used for procedure; 9:09:57 Baseline sample Acquired. 9:10:18 Previous problem with sedation/anesthesia? No ? 9:10:19 Snore? Yes 9:10:20 Sleep apnea? No 9:10:21 Deviated septum? No 9:10:22 Sticks out tongue? Yes 9:10:22 Opens mouth fully? Yes 9:10:24 Airway obstruction? No ? 9:10:27 Dentures? Yes in tight 9:10:31 Pre procedure: right dorsailis pedis pulse 1+ Palpable, but thready & weak; easily obliterated 9:10:50 Patient pain scale 0/10 ?. 9:11:41 IV patent on arrival in left forearm with 0.9% NaCl at [facility]. 9:12:18 Lab results completed and on chart. 9:12:21 Right Radial & Right Groin area was prepped with chlora-prep and draped in sterile fashion 9:12:22 Sharps counted by scrub and verified by R.N. 9:12:22 Alarms reviewed by R. N. 9:12:31 Physician arrived 9:12:32 Final Timeout: patient, procedure, and site verified with staff and physician. All members of the team are in agreement. 9:12:32 --------ALL STOP TIME OUT------ 9:12:34 Right Radial & Right Groin site verified by team. 9:12:36 Physical assessment completed. ASA score P 2 - A patient with mild systemic disease as per Ector Monteiro MD. 9:12:40 Sedation plan: IV Moderate Sedation Medication:Versed, Fentanyl 9:12:48 ACIST Syringe (61314) opened to sterile field. 9:15:05 Zero performed for pressure channel P1 9:15:07 Zero performed for pressure channel P1 9:15:09 Zero performed for pressure channel P1 9:15:12 Zero performed for pressure channel P1 9:15:13 Versed 1 mg I.V. was administered by Emory Preciado RN; for sedation; 9:15:24 Fentanyl 50 mcg I.V. was administered by Emory Preciado RN; for sedation; 9:16:16 Use device set Radial Dx 9:16:21 ACIST Syringe (57523) opened to sterile field. 9:16:22 Bag Decanter (2002S) opened to sterile field. 9:16:23 Medline Cath Pack ([id number]) opened to sterile field. 9:16:24 ACIST Manifold (50385) opened to sterile field. 9:16:24 ACIST Hand Control (24792) opened to sterile field. 9:16:25 Tegaderm 4 x 4 (1626W) opened to sterile field. 9:16:26 MBrace Wrist Support ([id number]) opened to sterile field. 9:16:27 NEEDLE Cook 21G 4cm Radial (T36191) opened to sterile field. 9:16:28 DIAGNOSTIC WIRE .035 260cm J wire (723437) opened to sterile field. 9:16:28 SHEATH 6FR Slender ([id number]) opened to sterile field. 9:16:52 GUIDE 6FR AR 2.0 SH catheter ([id number]) opened to sterile field. 9:16:53 INFLATOR Merit BasixCompak (PD8311) opened to sterile field. 9:16:53 CHOICE PT Extra Support J 300cm guide wire ([id number]) opened to sterile field. 9:17:00 Procedure started. 9:17:05 Local anesthetic to right radial artery with Lidocaine 2% by Ector Monteiro MD.INITIAL ACCESS ONLY 9:17:14 A 6 Fr Short sheath was inserted into the Radial artery 9:17:55 Radial Cocktail (Verapomil 2mg/Nitro 400mcg/Heparin 1500units) I.A. was administered by Ector Monteiro MD; for vasodilation; 9:18:00 glide wire advanced. 9:18:30 glide wire removed. unable to go radial, moving to femoral approach. 9:18:30 PERCUTANEOUS ENTRY 19GA needle opened to sterile field. 9:18:39 SHEATH 6FR [place] (EQB821) opened to sterile field. 9:18:52 Local anesthetic to right femoral artery with Lidocaine 2% by Ector Monteiro MD.ADDITIONAL ACCESS 9:19:38 A 6 Fr Short sheath was inserted into the Right Femoral artery 9:21:07 6 Fr AR 2 SH guide catheter was inserted over the wire 9:22:18 FIELDER XT J 300cm guide wire ([id number]) opened to sterile field. 9:23:05 Heparin Bolus 4000 units I.V. was administered by Ector Monteiro MD; for anticoagulation; 9:23:18 fielder wire advanced. 9:28:09 Wire removed. 9:28:16 choice pt wire advanced. 9:30:13 Wire removed. 9:30:29 GUIDE 6FR XBLAD 3.5 catheter (10227769) opened to sterile field. 9:30:38 Guide catheter removed. 9:30:45 6 Fr xblad 3.5 guide catheter was inserted over the wire 9:32:41 ? wire advanced. 9:33:12 Wire advanced across lesion. 9:34:37 Inflation Number: 1 A JUNE OTW 2.25 x 18 stent ([id number]) was prepped and advanced across the Mid LAD. The stent was deployed at 17 KAYLAN for 0:10 (min:sec). 9:34:55 Stent catheter was removed intact over wire. 9:34:56 Wire removed. 9:34:57 Guide catheter removed. 9:35:00 TR BAND Standard ([id number]) opened to sterile field. 9:35:15 EXOSEAL 6Fr (EX600) opened to sterile field. 9:35:30 Sheath removed intact; hemostasis achieved with Mechanical Compression to the Radial artery. 9:35:35 Sheath removed intact; hemostasis achieved with Exoseal to the Right Femoral artery. 9:35:37 Procedure ended.(Physican Out) 9:37:17 Fluoroscopy time 09.20 minutes. 9:37:21 Fluoroscopy dose: 270 mGy 9:37:21 Flurop Dose total: 270 9:37:27 Contrast amount:Isovue 300 78ml. 9:37:29 Sharps counted by scrub and verified by R.N. 9:37:31 TR band inflated with 12cc of air. 9:37:34 Insertion/operative site no bleeding no hematoma. 9:37:37 Post-op/insertion site Right Femoral artery dressed using a 4 x 4 and Tegaderm. 9:37:41 Post right femoral artery:stable, soft, clean and dry 9:37:43 Post Procedure Pulses reassessed and unchanged 9:37:45 Post-procedure physical assessment completed. ASA score P 2 - A patient with mild systemic disease as per Ector Monteiro MD. 9:37:47 Post procedure rhythm: unchanged. 9:40:55 Estimated blood loss: 10 ml 9:40:57 Patient needs reinforcement of post procedure teaching. 9:40:57 Post procedure instruction explained to patient.Patient verbalizes understanding. 9:41:18 Procedure type changed to Cath procedure, PCI procedure, Coronary Stent, Coronary Stent Initial, Miscellaneous Procedures, Moderate Sedation up to 30 minutes 9:43:21 Terumo Super Stiff Angled 260cm glide wire opened to sterile field. 9:43:38 Procedure and supply charges have been captured, reviewed, submitted and are correct. 9:43:41 Procedure Complication : No complications 9:43:43 Vital chart was stopped 9:43:46 See physician's report for complete and final results. 9:43:53 Report given to Pre/Post Procedure Room. 9:43:55 Patient transfered to Pre/Post Procedure Room with Stretcher. 9:43:57 Full Disclosure recording stopped 9:43:57 Procedure ended. 9:44:06 End room use (Document Last) Intervention Summary Intervention Notes Time ActionType Lesion and Equipment Action# Pressure Duration Attributes Used 9:34:37 Place stent Mid LAD JUNE OTW 2.25 1 17 00:10 x 18 stent ([id number]) Device Usage Item Name Manufacture Quantity Catalog Number Hospital Part Current Min imal Lot# / Charge Number Stock Stock Serial# Code ACIST Syringe Acist 2 84835 984288 177914 583590 20 (15443) Medical Systems Inc Bag Decanter Microtek 1 2001S 907147 38478 316390 5 () Medical Inc. Medline Cath Cardinal 1 [id number] 493415 47774 488483 5 Pack Health ([id number]) ACIST Hand Acist 1 73430 556425 216991 504561 5 Control Medical (03245) Systems Inc ACIST Acist 1 19152 921758 846553 136015 5 Manifold Medical (62574) Systems Inc Tegaderm 4 x 3M 1 1626W 592375 666649 474623 5 4 (1626W) MBrace Wrist Advanced 1 140-0250-00 021210 88938 317479 5 Support Vascular (574619681) Dynamics NEEDLE Cook Cook Medical 1 P23035 182667 598725 201733 5 21G 4cm Radial (E99511) SHEATH 6FR Terumo 1 [id number] 911268 653553 205982 40 Slender ([id number]) DIAGNOSTIC St Paddy 1 881500 674386 592389 914476 30 WIRE .035 260cm J wire (429380) GUIDE 6FR AR Medtronic 1 [id number] 124508 60346 093288 1 2.0 SH catheter (NW5TN0NE) CHOICE PT [place] 1 [id number] 092402 611671 437592 5 Extra Support Scientific J 300cm guide wire ([id number]) INFLATOR Merit 1 FP9785 543781 879000 455126 15 [facility] Medical BasixCompak (MK9445) SHEATH 6FR Terumo 1 TUE002 463446 210336 179363 40 [place] (JCE775) FIELDER XT J De Jesus 1 [id number] 392715 409321 303697 5 300cm guide Vascular wire ([id number]) PERCUTANEOUS Cook Medical 1 J18503 695458 416108 5 ENTRY 19GA needle GUIDE 6FR Cardinal 1 [id number] 626729 423629 592537 10 XBLAD 3.5 Health catheter (58597647) JUNE OTW 2.25 Medtronic 1 [id number] 347177 46537 377535 5 [id number] x 18 stent ([id number]) TR BAND Terumo 1 [id number] 674714 952987 523804 40 Standard (ASF61AUX) EXOSEAL 6Fr Cardinal 1 EX600 004402 930386 169711 10 (EX600) Health Terumo Super Terumo 1 TS7925 051472 441069 553959 5 Stiff Angled 260cm glide wire Signature Audit Onward Stage Time Signature Unsigned Intra-Procedure 05/06/2017 Cortez George 9:45:34 AM RT(R) Signatures Monitor : Cortez George RT Signature : Date : Time : [id number] [place] [address]
[~2017-05-06 07:54] MED LIST changes: +BAYER CHEWABLE81 MG PO; +CRESTOR10 MG PO; +HYDROCHLOROTHIA25 MG PO; +METOPROLOL TART25 MG PO; +NAPROSYN500 MG PO; +PLAVIX75 MG PO; +ZYLOPRIM100 MG PO
[2017-05-06 08:17] VITALS: BP 150/62; Ht 172.7 cm; Wt 72.7 kg
[2017-05-06 08:28] LABS: BASOPHILS 0.4 % (0-2); EOSINOPHILS 2.8 % (0-7); HEMATOCRIT 48.3 % (42.0-54.0); HEMOGLOBIN 16.9 g/dL (13.5-17.5); IMMATURE GRANULOCYTES 0.9 % (0-5); LYMPHOCYTES 27.4 % (15-50); MCH 33.2 pg (26.0-34.0); MCV 94.9 fL (80.0-100.0); MEAN PLATELET VOLUME 12.5 fL (7.4-10.4); MONOCYTES 9.8 % (2-11); NEUTROPHILS 58.7 % (40-80); PLATELET COUNT 116 10x3/uL (130-400); RBC 5.09 10x6/uL (4.20-6.10); RDW 12.5 % (11.5-14.5); WBC 7.9 10x3/uL (4.8-10.8)
[2017-05-06 08:35] LABS: CALCIUM 9.6 mg/dL (8.5-10.1); CARBON DIOXIDE 30.6 mmol/L (21.0-32.0); CREATININE - SERUM 1.3 mg/dL (0.6-1.3)
[2017-05-06 08:41] LABS: ANION GAP 9.9 mmol/L (8-16); POTASSIUM - SERUM 3.5 mmol/L (3.5-5.1)
--- NOTE | 2017-05-06 09:58 | NUR ---
RECIEVED TO ROOM VIA STRETCHER FROM GRAIN FARMWORKER WITH REPORTS OF ONE STENT TO THE LAD. TR BAND TO R/WRIST CDI AND 6 FR EXOSEAL R/GROIN CDI NO BLEEDING NO HEMATOMA NOTED. VSS
--- NOTE | 2017-05-06 10:12 | NUR ---
FAMILY AT BEDSIDE WITH CHEST PAIN DENIED SB RATE 56 BP 141/61. TR BAND TO R/WRIST CDI AND 6 FR EXOSEAL R/GROIN CDI NO BLEEDING NO HEMATOMA NOTED
--- NOTE | 2017-05-06 10:41 | NUR ---
PT SLEEPING, AWAKENS EASILY TO VERBAL STIMULI. TR BAND TO RIGHT WRIST IS CDI WITH NO BLEEDING OR HEMATOMA NOTED. DRESSING TO RIGHT GROIN IS CDI, SMALL HEMATOMA NOTED AT SITE. PRESSURE HELD X 5 MINUTES, WITH SOFTENING NOTED. WILL CONTINUE TO MONITOR. PEDAL PULSES PALPABLE. SINUS BRADYCARDIA WITH OCCASIONAL PVC'S, RATE IS 56. BP 128/57. PO FLUIDS AT BEDSIDE. MULTIPLE FAMILY MEMBERS AT BEDSIDE. CALL LIGHT IN REACH.
--- NOTE | 2017-05-06 10:53 | NUR ---
TR BAND SITE CDI, NO BLEEDING NOTED, GROIN IS SOFT AND NONTENDER. PEDAL PULSES PALPABLE. HOB FLAT. SINUS BRADYCARDIA WITH RATE OF 55. BP IS 131/58. MULTIPLE FAMILY AT BEDSIDE, CALL LIGHT IN REACH.
--- NOTE | 2017-05-06 11:19 | NUR ---
PT SLEEPING, RR EVEN AND UNLABORED. TR BAND CDI, NO BLEEDING OR HEMATOMA NOTED. FINGERS WARM, CAP REFILL IS BRISK. DRESSING TO RIGHT GROIN IS CDI. AREA IS SOFT AND NONTENDER. PEDAL PULSES PALPABLE. SINUS YODIT WITH OCCASIONAL PVC'S. BP IS 132/56.
--- NOTE | 2017-05-06 11:35 | NUR ---
RIGHT GROIN STABLE, TR BAND CDI NO BLEEDING OR HEMATOMA NOTED. PULSES PALPABLE. NSR, RATE 69, OCCAS PVC'S. DENIES ANY C/O.
--- NOTE | 2017-05-06 11:49 | NUR ---
RIGHT GROIN STABLE, AREA IS SOFT AND NONTENDER. PEDAL PULSES PALPABLE. TR BAND CDI, NO BLEEDING OR HEMATOMA NOTED. FINGERS WARM, CAP REFILL IS BRISK. NSR, RATE 63. BP IS 134/56. PT DENIES ANY C/O. FAMILY AT BEDSIDE, CALL LIGHT IN REACH.
--- NOTE | 2017-05-06 12:12 | NUR ---
PT SITTING UP IN BED, BENDING RIGHT LEG UP AND PUSHING WITH RIGHT FOOT TO REPOSITION HIPS AND SCOOT UP IN BED. REINSTRUCTED PT ON KEEPING RIGHT LEG STRAIGHT AND HEAD TO PILLOW. RIGHT GROIN STABLE, NO BLEEDING OR HEMATOMA AT RIGHT WRIST. AT BEDSIDE.
--- NOTE | 2017-05-06 12:32 | NUR ---
3 CC OF AIR REMOVED FROM TR BAND WITH NO BLEEDING OR HEMATOMA NOTED. DRSSING RIGHT GROIN IS CDI, AREA SOFT AND NONTENDER. PULSES PALPABLE. AT BEDSIDE. NSR, RATE 64. BP IS 147/60. PT DENIES ANY C/O AT THIS TIME.
--- NOTE | 2017-05-06 13:01 | NUR ---
1250 3 CC OF AIR REMOVED FROM TR BAND WITH NO BLEEDING OR HEMATOMA NOTED. RIGHT GROIN STABLE WITH NO BLEEDING OR HEMATOMA NOTED. PULSES PALPABLE. HOB ELEVATED AND SANDWICH TRAY/ COFFEE SERVED. FAMILY AT BEDSIDE. PT DENIES ANY C/O AT THIS TIME.
--- NOTE | 2017-05-06 13:09 | NUR ---
3 CC OF AIR REMOVED FROM TR BAND, PT SITTING UP IN BEAD, HERNAN SANDWICH WITH NO C/O NAUSEA. RIGHT GROIN STABLE.
--- NOTE | 2017-05-06 13:20 | NUR ---
1320 3 CC OF AIR REMOVED FROM TR BAND WITH NO BLEEDING OR HEMATOMA NOTED. IV DC'D WITH CATH INTACT. PT HAS HERNAN SANDWICH WITH NO C/O NAUSEA. PT DRESSING FOR DC TO HOME WITH ASSIST FROM . WRIST IMMOBILIZER IN PLACE. DRESSING RIGHT GROIN IS CDI, AREA SOFT AND NONTENDER.
--- NOTE | 2017-05-06 14:19 | NUR ---
1340 2X2 AND TEGADERM CDI TO CATH SITE RIGHT RADIAL. WRIST IMMOBILIZER IN PLACE. PT HAS AMBULATED TO THE BATHROOM AND VOIDED QS. DC INSTRUCTIONS REVIEWED AND PT VERBALIZES UNDERSTANDING. PT ESCORTED TO PRIVATE AUTO VIA WC BY NURSE WITH DRIVING HIM HOME.
--- NOTE | 2017-05-20 15:46 | OP ---
PATIENT NAME: MARBIN SAMSON MEDICAL RECORD: [id number] :41 LOCATION:D.[facility] ADMISSION DATE: SURGEON: SHAUNA TERESA MD DATE OF OPERATION: 05/06/2017 PROCEDURES: 1. PTCA stent to LAD. 2. Selective coronary angiography. 3. Attempted but failed PTCA stent of the RCA due to inability to cross with wire. PROCEDURE IN DETAIL: After informed consent was obtained and after detailed explanation of risks, benefits as well as alternative therapies, the patient elected to proceed with angiogram and angioplasty. The right femoral area was prepped and draped in normal sterile fashion. The right femoral artery was cannulated via modified Seldinger technique with placement of 6-Sami sheath. All catheters exchanged through this sheath. FINDINGS: The right coronary artery is totally occluded in the mid vessel, we could not cross this with any coronary wire. We turned our attention to the LAD. The 80% stenosis in the mid vessel was addressed with a 2.25 x 18 mm Grant stent. Result was 0% residual stenosis. OVERALL IMPRESSION: Successful percutaneous transluminal coronary angioplasty stent of the left anterior descending going from 80% initial stenosis to 0% residual stenosis. The right coronary artery could not be crossed. There is good collateralization of the right coronary artery off the circumflex. At this time it would be treated with this and medical management. 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
--- NOTE | 2017-05-20 15:46 | HP ---
PATIENT: MARBIN SAMSON MEDICAL RECORD: [id number] ACCOUNT: [id number] LOCATION:[facility] : 41 ADMISSION DATE: 05/06/17 HISTORY AND PHYSICAL EXAMINATION ADMITTING DIAGNOSES: 1. Angina. 2. Coronary artery disease. 3. Recent percutaneous transluminal coronary angioplasty stent of the left circumflex with concomitant disease of LAD and RCA. 4. Hypertension. 5. Hyperlipidemia. HISTORY OF PRESENT ILLNESS: Mr. Samson presents with unstable anginal symptomatology, found to have severe 3-vessel coronary artery disease, underwent successful PTCA stent of the left circumflex, is now brought back for PTCA stent of the LAD and RCA in a staged fashion. REVIEW OF SYSTEMS: The patient reports easy bruising but reports no swollen glands. The patient reports no fever, no night sweats, no significant weight gain, no significant weight loss. No significant exercise tolerance. The patient reports no dry eyes, no irritation, no vision change. Patient reports no difficulty hearing and no ear pain. Patient reports no frequent nose bleeds or nose and sinus problems. Patient reports on arm pain on exertion. No shortness of breath while lying down. No history of heart murmur. Patient reports no cough, no wheezing or coughing up blood. Patient reports no abdominal pain, no vomiting. Normal appetite. No diarrhea and not vomiting blood. No nausea and no constipation. Patient reports no incontinence. No difficulty urinating. No hematuria. No increased frequency. Patient reports no muscle aches. No weakness, no arthralgias, no back pain. No swelling of the extremities. Patient reports no abnormal mole, no jaundice, no rashes. Reports no loss of consciousness. No weakness and no numbness. No seizures, dizziness, or headaches. The patient reports no depression, no sleep disturbance, feeling safe in a relationship and no alcohol abuse. Patient reports on fatigue. Reports no runny nose or sinus pressure. No itching, no hives, and no frequent sneezing. PHYSICAL EXAMINATION: GENERAL APPEARANCE: Well-nourished, well-developed, appears stated age. Level of distress, comfortable. PSYCHIATRIC: Mental status, alert, normal affect. Orientation, oriented to time, place and person. EYES: Lids and conjunctiva, noninjected. No discharge, no pallor. ENT: Lips, teeth, gums, normal dentition. Oropharynx, no cyanosis, no pallor. NECK: Carotid arteries, bilateral normal upstroke, no bruits, no thrills. JUGULAR VEINS: No jugular venous pressure or distention. CERVICAL LYMPH NODES: Nontender, nonenlarged. THYROID: Not enlarged. Nontender. No nodules. LUNGS: Respiratory effort, unlabored. CHEST: Normal curvature. No thoracic deformity. No chest wall tenderness. Percussion, resonant. Auscultation, clear. No wheezes, no rales, no rhonchi. CARDIOVASCULAR: Precordial exam, nondisplaced. No heaves or pericardial thrills. Rate and rhythm, regular. Heart sounds, normal S1, normal S2. No S3, no gallop, no rub. Systolic murmur, not heard. Diastolic murmur, not heard. EXTREMITIES: No cyanosis, no edema. Peripheral pulses, full and equal in all HISTORY AND PHYSICAL [id number] MARBIN SAMSON extremities, except as noted. No bruits appreciated. ABDOMEN: Soft, nondistended. Normal aorta. No bruit. Nontender. No masses. Liver, nontender, no hepatomegaly. Spleen, nontender, no splenomegaly. MUSCULOSKELETAL: No joint tenderness. No joint swelling. No erythema. NEUROLOGICAL: Normal gait, normal strength, normal tone. SKIN: Warm and dry. OVERALL IMPRESSION: Critical disease of the LAD and RCA. We will proceed with transcatheter revascularization of these territories. TRANSINT:[id number] Voice Confirmation ID: [id number] DOCUMENT ID: [id number] SHAUNA TERESA MD at 1546 CC: [id number] DICTATION DATE: 05/06/17904 MID WIFE: 05/06/1741 DEP CLI 05/06/17 [facility] [address] [place] [address]
== END 2017-05-06 13:40 | disposition home or self-care (01) ==
LOC: D.CATH 07:54
PROVIDERS: Internal Medicine Interventional Cardiology
DX: I25.110 Atherosclerotic heart disease of native coronary artery with unstable angina pectoris (principal); I10 Essential (primary) hypertension; E78.5 Hyperlipidemia, unspecified; Z01.812 Encounter for preprocedural laboratory examination

== ENCOUNTER → 2017-06-08 08:09 | Outpatient (CLI) | payer MEDICARE, OTHER ==
[2017-05-06 08:17] VITALS: BMI 24.3
== END | disposition home or self-care (01) ==
LOC: D.CT 08:09
DX: I73.9 Peripheral vascular disease, unspecified (principal)

== ENCOUNTER → 2017-08-20 10:56 | Outpatient (CLI) | payer MEDICARE, OTHER ==
[2017-05-06 08:17] VITALS: BMI 24.3
[~2017-08-20 10:56] MED LIST changes: +TOPROL XL25 MG PO
== END | disposition home or self-care (01) ==
LOC: D.CT 10:56
DX: I77.1 Stricture of artery (principal)

== ENCOUNTER 2017-08-31 06:48 | Outpatient (CLI) | payer MEDICARE, OTHER ==
[~2017-08-31] VITALS: Ht 172.7 cm; Wt 75.0 kg
--- NOTE | ~2017-08-31 | HEMODYNAMI ---
PATIENT:MARBIN SAMSON MEDICAL RECORD: [id number] : 41 [id number] ADMISSION DATE: 08/31/17 Generatedon:08/31/201711:45 Patient name: MARBIN SAMSON Patient #: [id number] SSN: : 1945 Date of study: 08/31/2017 Page: Of Hemodynamic Procedure Report Patient Data Patient Demographics Procedure consent was obtained First Name: MARBIN Gender: Male Last Name: CHAPIN : 1945 Middle Initial: A Age: 72 year(s) Patient #: [id number] Race: Unknown Additional ID: [id number] Contact details Address: [address] [place] [address] State: [place] City: [place] Zip code: [address] Past Medical History Allergies: No known allergies Admission Admission Data Admission Date: 08/31/2017 Admission Time: 6:48 Weight (lbs.): 165 Weight (kg.): 74.84 Procedure Procedure Types Cath Procedure Peripheral Cath Diagnostic Procedure Cath Peripheral Abd/Extremity Extremities Bilat Lower Extremity Procedure Description Procedure Date Procedure Date: 08/31/2017 Procedure Start Time: 9:42 Procedure Staff Name Function Zafar Berg MD Performing Physician Yessy Griggs RT Heel Cementer Machine Yessy Griggs RT Monitor Josselyn Mackey RN Nurse Bhavana Jaeger RN Nurse Luis Fernando Rod RT Scrub Procedure Data Cath Procedure Fluoroscopy Diagnostic fluoroscopy Total fluoroscopy Time: time: 35.9 min 35.9 min Diagnostic fluoroscopy Total fluoroscopy dose: dose: 1581 mGy 1581 mGy Contrast Material Contrast Material Type Amount (ml) Isovue 300 135 Entry Location Entry Primary Successful Side Size Upsize Upsize Entry Closure Succes sful Closure Location (Fr) 1 (Fr) 2 (Fr) Remarks Device Remarks Femoral Right Exoseal artery Diagnostic catheters Device Type Used For End Catheter Placement Angiodynamics SOS OMNI 2 NON B 5FR 65CM catheter ([id number]) Procedure Medications Medication Administration Route Dosage Fentanyl I.V. 50 mcg Versed I.V. 2 mg Oxygen NC 3 l/min Lidocaine 1% added to field 20 Heparin Flush Bag added to field 3 (1000units/500ml NS) Fentanyl I.V. 50 mcg Heparin Flush Bag added to field 1 bags (1000units/500ml NS) Versed I.V. 1 mg Heparin Bolus I.V. 5000 units Versed I.V. 1 mg Hemodynamics Rest Heart Rate: 58 (bpm) Snapshots Pre Cath Intra NCS Post Cath Vital Signs Time Heart Resp SPO2 etCO2 NIBP (mmHg) Rhythm Pain Status Sedation Rate (ipm) (%) (mmHg) Level (bpm) 9:22:10 53 11 99 30.8 Measuring SB 0 (11) , No 10(A) pain 9:22:33 49 15 100 33.1 181/79(151) SB 0 (11) , No 10(A) pain 9:27:32 58 36 99 18.8 Measuring SB 0 (11) , No 10(A) pain 9:28:56 51 19 99 30.1 Time SB 0 (11) , No 10(A) Exceeded pain 9:33:44 50 17 98 30.8 167/75(135) SB 0 (11) , No 10(A) pain 9:38:13 50 18 98 27.8 167/76(137) SB 0 (11) , No 10(A) pain 9:42:35 59 21 30.1 167/83(139) SB 0 (11) , No 10(A) pain 9:47:01 56 17 32.4 153/69(114) SB 0 (11) , No 8(A) pain 9:51:24 57 14 0 155/69(128) SB 0 (11) , No 8(A) pain 9:55:46 53 14 0 147/71(119) SB 0 (11) , No 8(A) pain 10:00:04 52 14 100 25.5 149/74(124) SB 0 (11) , No 8(A) pain 10:04:24 52 13 0 156/73(121) SB 0 (11) , No 8(A) pain 10:09:23 54 13 0 Measuring SB 0 (11) , No 8(A) pain 10:09:37 54 14 0 136/71(119) SB 0 (11) , No 8(A) pain 10:13:51 54 15 33.8 155/78(130) SB 0 (11) , No 8(A) pain 10:18:14 59 16 33.1 155/78(136) SB 2 (11) , 8(A) Uncomfortable 10:22:31 56 12 97 36.1 142/72(134) SB 0 (11) , No 8(A) pain 10:27:26 63 13 96 0 152/78(98) NSR 0 (11) , No 8(A) pain 10:32:26 60 13 97 37.6 Measuring NSR 0 (11) , No 8(A) pain 10:32:30 61 14 97 37.6 135/72(111) NSR 0 (11) , No 8(A) pain 10:36:46 55 12 98 0 143/72(113) SB 0 (11) , No 8(A) pain 10:41:06 59 13 98 0 128/71(111) SB 0 (11) , No 8(A) pain 10:45:20 59 13 97 0 141/71(110) SB 0 (11) , No 8(A) pain 10:49:36 56 98 33.1 146/75(122) SB 0 (11) , No 8(A) pain 10:53:54 57 19 95 21.8 143/78(109) SB 0 (11) , No 8(A) pain 10:58:12 53 13 98 26.3 135/73(114) SB 0 (11) , No 8(A) pain 11:02:28 59 13 98 35.4 141/72(110) SB 0 (11) , No 8(A) pain 11:07:25 53 15 99 34.6 143/70(117) SB 0 (11) , No 8(A) pain 11:11:43 57 15 99 36.9 151/75(122) SB 0 (11) , No 8(A) pain 11:16:03 57 13 99 0 159/76(120) SB 0 (11) , No 8(A) pain 11:20:21 58 14 99 0 152/79(131) SB 0 (11) , No 8(A) pain 11:24:41 57 14 99 26.3 167/81(129) SB 0 (11) , No 8(A) pain 11:28:55 55 14 99 34.6 152/80(119) SB 0 (11) , No 8(A) pain 11:33:54 60 13 99 34.6 Measuring SB 0 (11) , No 8(A) pain 11:33:58 58 13 99 28.6 172/79(122) SB 0 (11) , No 8(A) pain 11:38:23 56 15 99 34.6 171/82(151) SB 0 (11) , No 8(A) pain 11:43:22 60 16 99 25.5 Measuring SB 0 (11) , No 9(A) pain 11:43:38 60 15 99 30.8 166/77(105) SB 0 (11) , No 9(A) pain Medications Time Medication Route Dose Verified Delivered Reason Notes Effect iveness by by 9:43:32 Fentanyl I.V. 50 Zafar Aguirreine for Mostly mcg Narendra Berg RN sedation sleeping @ MD 10:20:57 9:43:45 Versed I.V. 2 mg Zafar Aguirreine for Mostly Narendra Berg RN sedation sleeping @ 10:20:54 9:44:00 Oxygen NC 3 Zafar Josselyn for l/min Narendra Berg RN sedation MD 9:44:16 Lidocaine 1% added 20ml Zafar Stephen Per to vial Otis Berg MD protocol field GAGE 9:44:36 Heparin Flush added 3 Zfaar Stephen Per Bag to BAGS Otis Berg MD protocol (1000units/500ml field GAGE NS) 10:20:18 Fentanyl I.V. 50 Zafar Aguirreine for Mostly mcg Narendra Berg RN sedation sleeping @ 10:49:41 10:20:41 Heparin Flush added 1 Zafar Stephen Per Bag to bags Otis Berg MD protocol (1000units/500ml field GAGE NS) 10:23:54 Versed I.V. 1 mg Zafar Josselyn for Mostly Narendra Berg RN sedation sleeping @ 10:49:45 10:33:35 Heparin Bolus I.V. 5000 Zafar Bhavana units Mil Berg RN, MD 10:50:17 Versed I.V. 1 mg Zafar Aguirreine for Mostly Narendra Berg RN sedation sleeping @ 11:00:21 Procedure Log Time Note 8:53:13 Patient Weight : 165 lbs 8:53:45 Use device set IR Diagnostic 8:54:39 DOC .035 wire (R72117) opened to sterile field. 8:54:40 Micropuncture VSI 4FR kit opened to sterile field. 8:54:41 SHEATH 5FR [place] (FCE556) opened to sterile field. 8:54:42 BENTSON 260cm .035 wire (H75893) opened to sterile field. 8:54:44 TUBING Contrast Injection High Pressure (NMP544Q) opened to sterile field. 8:54:45 Tegaderm 4 x 4 (1626W) opened to sterile field. 8:54:46 Sterile Angiographic Pack opened to sterile field. 8:54:47 Bag Decanter (2002S) opened to sterile field. 8:54:48 ACIST Manifold (45996) opened to sterile field. 8:54:49 ACIST Hand Control (79332) opened to sterile field. 8:54:50 ACIST Syringe (26980) opened to sterile field. 9:02:52 Angiodynamics Omniflush 5Fr 65cm (50891437) opened to sterile field. 9:05:30 GARDUNO 260 wire (X37095) opened to sterile field. 9:06:20 Time tracking: Regular hours 9:06:28 Plan of Care:Hemodynamics will remain stable., Cardiac rhythm will remain stable., Comfort level will be maintained., Respiratory function will remain adequate., Patient/ family verbilizes understanding of procedure., Procedure tolerated without complication., Recovers from procedure without complications.. 9:08:29 Patient received from Outpatients to IR Alert and oriented. Tansferred to table in Supine position. 9:08:32 Signed procedure consent form obtained from patient. 9:08:37 H&P Date Dictated: 08/31/2017 Within 30 days and on chart.. 9:08:39 Pre-procedure instructions explained to patient. 9:08:41 Pre-op teaching completed and patient verbalized understanding. 9:08:43 Family in waiting room. 9:08:45 Patient NPO since Midnight. 9:08:54 Patient allergic to No known allergies 9:08:59 Is the patient allergic to Iodine/contrast media? No. 9:09:01 Is patient on blood thinner?Yes 9:09:12 ACC The patient was administered the following blood thiners within the last 24 hours: ACCAspirin, ACCPlavix 9:09:15 Patient diabetic? No. 9:09:18 - 9:09:20 ----Pre-sedation anethsthesia assessment.---- 9::24 Previous problem with sedation/anesthesia? No ? 9:09:26 Snore? Yes 9::28 Sleep apnea? No 9::31 Deviated septum? No 9::33 Opens mouth fully? Yes 9:09:34 Sticks out tongue? Yes 9:09:37 Airway obstruction? No ? 9:09:43 Dentures? No OUT 9:09:48 - 9:14:12 Pre procedure: right dorsailis pedis pulse Doppler 9:14:16 Pre procedure: left dorsailis pedis pulse Doppler 9:14:20 Pre procedure: right posterior tibial pulse Doppler 9:14:25 Pre procedure: left posterior tibial pulse Doppler 9:14:32 IV patent on arrival in left wrist with D5/.45%NaCl at O. 9:14:41 Right groin area was prepped with chlora-prep and draped in sterile fashion 9:14:46 Left groin area was prepped with chlora-prep and draped in sterile fashion 9:14:49 - 9:20:21 Vital chart was started 9:35:02 Physician arrived 9:38:07 --------ALL STOP TIME OUT------ 9:38:08 Final Timeout: patient, procedure, and site verified with staff and physician. All members of the team are in agreement. 9:41:57 Procedure started. 9:41:59 Full Disclosure recording started 9:42:05 Local anesthetic to right femoral artery with Lidocaine 1% by Zafar Berg MD.INITIAL ACCESS ONLY 9:42:11 Arterial access obtained using ultrasound guidance. 9:43:32 Fentanyl 50 mcg I.V. was administered by Josselyn Mackey RN; for sedation; 9:43:45 Versed 2 mg I.V. was administered by Josselyn Mackey RN; for sedation; 9:44:00 Oxygen 3 l/min NC was administered by Josselyn Mackey RN; for sedation ; 9:44:16 Lidocaine 1% 20ml vial added to field was administered by Zafar Berg MD; Per protocol; 9:44:36 Heparin Flush Bag (1000units/500ml NS) 3 BAGS added to field was administered by Zafar Berg MD; Per protocol; 9:45:16 ECG and BP/O2 sat monitors applied to patient. 9:45:17 Baseline sample Acquired. 9:45:22 - 9:51:26 TORQUE DEVICE PLASTIC .038 ( TD01) opened to sterile field. 9:51:27 GLIDE WIRE ANGLE 180cm (OS3896) opened to sterile field. 9:58:37 A AngiodynamAppetizer Mobile SOS OMNI 2 NON B 5FR 65CM catheter ([id number]) was advanced over the wire and used for . 10:07:04 SHEATH 4Fr Precision (853885) opened to sterile field. 10:20:18 Fentanyl 50 mcg I.V. was administered by Josselyn Mackey RN; for sedation; 10:20:41 Heparin Flush Bag (1000units/500ml NS) 1 bags added to field was administered by Zafar Berg MD; Per protocol; 10:20:46 LEFT ARM WAS ACCESSED. ANGIOGRAM PERFORMED. FAILED ATTEMPT TO REACH THE LEFT ILIAC. MOVED TO PREPPED LEFT GROIN FOR ANOTHER ATTEMPT . 10:20:54 Effectiveness of Versed delivered @ 9:43:45 is: Mostly sleeping 10:20:57 Effectiveness of Fentanyl delivered @ 9:43:32 is: Mostly sleeping 10:21:11 GLIDE WIRE ANGLE 260cm (ZS8521) opened to sterile field. 10:21:12 GLIDE CATHETER 5FR ANGLED 100cm (CG508) opened to sterile field. 10:21:13 GLIDE CATHETER 5FR ANGLED 65cm (CG507) opened to sterile field. 10:22:19 Cook RAABE 6FR. 90cm guide sheath opened to sterile field. 10:22:49 SHEATH 5FR [place] (SOO839) opened to sterile field. 10:23:54 Versed 1 mg I.V. was administered by Josselyn Mackey RN; for sedation; 10:25:25 FAMILY UPDATE GIVEN 10:33:35 Heparin Bolus 5000 units I.V. was administered by Bhavana Jaeger RN; ; 10:33:45 ROADRUNNER .035 260 glide wire (C33104) opened to sterile field. 10:35:27 Trailblazer 0.035 135cm catheter (ARD113678) opened to sterile field. 10:49:41 Effectiveness of Fentanyl delivered @ 10:20:18 is: Mostly sleeping 10:49:45 Effectiveness of Versed delivered @ 10:23:54 is: Mostly sleeping 10:49:[address] [place] (697401) opened to sterile field. 10:50:17 Versed 1 mg I.V. was administered by Josselyn Mackey RN; for sedation; 10:52:36 Micropuncture VSI 4FR kit opened to sterile field. 10:58:37 GLIDE CATHETER 4FR Straight 65cm (CG412) opened to sterile field. 11:00:21 Effectiveness of Versed delivered @ 10:50:17 is: Mostly sleeping 11:02:35 LEFT GROIN ACCESSED. 11:11:50 FAMILY UPDATE 11:34:38 EXOSEAL 5Fr (EX500) opened to sterile field. 11:34:58 A sheath was inserted into the Right Femoral artery 11:34:58 Sheath removed intact; hemostasis achieved with Exoseal to the Right Femoral artery. 11:35:16 Procedure ended.(Physican Out) 11:35:30 Tegaderm 4 x 4 (1626W) opened to sterile field. 11:35:31 Tegaderm 4 x 4 (1626W) opened to sterile field. 11:37:51 Fluoroscopy time 35.90 minutes. 11:37:57 Fluoroscopy dose: 1581 mGy 11:37:57 Flurop Dose total: 1581 11:38:04 Contrast amount:Isovue 300 135ml. 11:38:12 Procedure and supply charges have been captured, reviewed, submitted an d are correct. 11:45:36 Vital chart was stopped Device Usage Item Name Manufacture Quantity Catalog Hospital Part Current Mini mal Lot# / Number Charge Number Stock Stock Serial# Code DOC .035 wire Cook Medical 1 [id number] [id number] 5 [id number] ([id number]) Micropuncture VSI VASCULAR 2 7266V 690026 883990 5 VSI 4FR kit SOLUTIONS SHEATH 5FR Terumo 2 YKW552 938527 215898 720164 40 [place] (SPS535) BENTSON 260cm [facility] 1 A39580 734325 364259 734944 4 5094664 .035 wire (R21829) TUBING [facility] 1 [id number] 148499 857587 546335 5 Contrast Injection High Pressure (TZQ088L) Tegaderm 4 x 3M 3 1626W 157174 587688 757117 5 4 (1626W) Sterile Cardinal 1 [id number] 090090 517788 5 Angiographic Health Pack Bag Decanter Microtek 1 178892 59021 548088 5 () Medical Inc. ACIST Acist Medical 1 63452 076433 755019 124066 5 Manifold Systems Inc (84297) ACIST Hand Acist Medical 1 65981 565544 456924 629929 5 Control Systems Inc (10882) ACIST Syringe Acist Medical 1 22541 323628 267011 704546 20 (40420) Systems Inc Angiodynamics Angiodynamics 1 56578138 776037 220030 607538 5 Omniflush 5Fr 65cm (78699586) GARDUNO 260 [employer] 1 V45674 321886 030201 5 8510180 wire (K13630) TORQUE DEVICE Varna 1 TD01 831399 834485 750853 5 PLASTIC .038 Scientific ( TD01) GLIDE WIRE Terumo 1 FM8232 614252 562459 379584 5 ANGLE 180cm (HQ3941) Angiodynamics Angiodynamics 1 02354006 664001 72076 624520 5 SOS OMNI 2 NON B 5FR 65CM catheter (94672344) SHEATH 4Fr Terumo 1 70-4160 768308 450917 276494 5 Precision (578936) GLIDE WIRE Terumo 1 MZ5966 074560 631061 738055 5 ANGLE 260cm (JQ8225) GLIDE Terumo 1 CG508 245363 94946 182422 4 CATHETER 5FR ANGLED 100cm (CG508) GLIDE Terumo 1 CG507 730033 285128 5 CATHETER 5FR ANGLED 65cm (CG507) [facility] 1 H90845 555055 455123 5 6FR. 90cm guide sheath [facility] 1 K96722 848620 095026 615827 5 9293560 .035 260 glide wire (C52772) Trailbliner Medtronic 1 ASC-035-135 071950 34844 564687 5 0.035 135cm catheter (LVP897942) SHEATH 4FR [facility] 1 018415 400041 371953 434498 5 Paddy (571238) GLIDE Terumo 1 CG412 178688 899328 5 CATHETER 4FR Straight 65cm (CG412) EXOSEAL 5Fr Cardinal 1 EX500 743736 130353 949010 10 [id number] (EX500) Health Signature Audit [place] Stage Time Signature Unsigned Intra-Procedure 08/31/2017 Yessy Griggs 11:45:32 AM RT(R) Signatures Monitor : Yessy Griggs RT Signature : Date : Time : [facility] [address] [place] [address]
[~2017-08-31 06:48] MED LIST changes: -TOPROL XL25 MG PO
[2017-08-31 08:02] VITALS: BP 140/82; Ht 172.7 cm; Wt 75.0 kg
[2017-08-31 08:06] LABS: BASOPHILS 0.5 % (0-2); EOSINOPHILS 1.7 % (0-7); HEMATOCRIT 47.5 % (42.0-54.0); HEMOGLOBIN 16.8 g/dL (13.5-17.5); IMMATURE GRANULOCYTES 0.8 % (0-5); MCH 33.1 pg (26.0-34.0); MCHC 35.4 g/dL (31.0-37.0); MCV 93.5 fL (80.0-100.0); MEAN PLATELET VOLUME 12.7 fL (7.4-10.4); MONOCYTES 8.6 % (2-11); NEUTROPHILS 60.4 % (40-80); PLATELET COUNT 102 10x3/uL (130-400); RBC 5.08 10x6/uL (4.20-6.10); RDW 12.6 % (11.5-14.5); WBC 7.5 10x3/uL (4.8-10.8)
[2017-08-31 08:15] LABS: APTT 29.5 SECONDS (22.8-39.4); INR 0.99 (0.85-1.17); PROTIME 12.7 SECONDS (11.6-15.0)
[2017-08-31 08:18] LABS: ANION GAP 11.4 mmol/L (8-16); CALCIUM 9.1 mg/dL (8.5-10.1); CARBON DIOXIDE 30.3 mmol/L (21.0-32.0); CREATININE - SERUM 1.2 mg/dL (0.6-1.3); POTASSIUM - SERUM 4.7 mmol/L (3.5-5.1)
[2017-09-25] MEDS ORDERED: TOPROL XL25 MG PO (11:07)
== END 2017-08-31 18:04 | disposition home or self-care (01) ==
LOC: D.SP 06:48 → D.RAD 08:00 → D.SP 09:00 → D.OPS 09:00 → D.SP 18:04
PROVIDERS: General Practice
DX: I74.5 Embolism and thrombosis of iliac artery (principal); I70.203 Unspecified atherosclerosis of native arteries of extremities, bilateral legs; F17.200 Nicotine dependence, unspecified, uncomplicated; Z01.812 Encounter for preprocedural laboratory examination

== ENCOUNTER 2017-09-11 06:31 | Outpatient (CLI) | payer MEDICARE, OTHER ==
[~2017-09-11] VITALS: Ht 172.7 cm; Wt 75.0 kg
--- NOTE | ~2017-09-11 | HEMODYNAMI ---
PATIENT:MARBIN SAMSON MEDICAL RECORD: [id number] : 41 [id number] ADMISSION DATE: 09/11/17 Generatedon:09/11/201710:50 Patient name: MARBIN SAMSON Patient #: [id number] SSN: : 1945 Date of study: 09/11/2017 Page: Of Hemodynamic Procedure Report Patient Data Patient Demographics Procedure consent was obtained First Name: MARBIN Gender: Male Last Name: CHAPIN : 1945 Middle Initial: A Age: 72 year(s) Patient #: [id number] Race: Unknown Additional ID: [id number] Contact details [address]: [address] [place] [address] State: [place] City: [place] Zip code: [address] Past Medical History Allergies: No known allergies Admission Admission Data Admission Date: 09/11/2017 Admission Time: 6:31 Procedure Procedure Types Cath Procedure Peripheral Cath Diagnostic Procedure Abd/Extremity Extremities Left Lower Ext Arterio Procedure Description Procedure Date Procedure Date: 09/11/2017 Procedure Start Time: 9:10 Procedure Staff Name Function Zafar Berg MD Performing Physician Bhavana Jaeger RN Nurse Josselyn Mackey RN Nurse Luis Fernando Rod RT Monitor Luanne Álvarez RT Scrub Procedure Data Cath Procedure Fluoroscopy Diagnostic fluoroscopy Total fluoroscopy Time: 8.6 time: 8.6 min min Diagnostic fluoroscopy Total fluoroscopy dose: 95 dose: 95 mGy mGy Contrast Material Contrast Material Type Amount (ml) Isovue 300 90 Entry Location Entry Primary Successful Side Size Upsize Upsize Entry Closure Lock ccessful Closure Location (Fr) 1 (Fr) 2 (Fr) Remarks Device Remarks Femoral Left 5 Fr Manual artery Compression Procedure Medications Medication Administration Route Dosage Lidocaine 1% added to field 20 Heparin Flush Bag added to field 3 bags (1000units/500ml NS) Oxygen NC 3 l/min Versed I.V. 1 mg Fentanyl I.V. 50 mcg Versed I.V. 1 mg Fentanyl I.V. 50 mcg Heparin Bolus I.V. 5000 units Versed I.V. 1 mg Fentanyl I.V. 50 mcg Nitroglycerin IC/IA I.C. 200 mcg Fentanyl I.V. 50 mcg Versed I.V. 1 mg Nitroglycerin IC/IA I.C. 200 mcg Versed I.V. 1 mg Fentanyl I.V. 50 mcg Hemodynamics Rest Heart Rate: 53 (bpm) Snapshots Pre Cath Intra NCS Post Cath Vital Signs Time Heart Resp SPO2 etCO2 NIBP (mmHg) Rhythm Pain Status Sedation Rate (ipm) (%) (mmHg) Level (bpm) 8:51:05 54 21 99 0 170/76(136) SB 0 (11) , No 10(A) pain 8:55:31 53 20 100 0 159/73(127) SB 0 (11) , No 10(A) pain 8:59:54 57 22 98 23.5 152/78(127) SB 0 (11) , No 10(A) pain 9:04:14 58 20 97 26.6 159/75(130) SB 0 (11) , No 10(A) pain 9:08:36 59 20 98 28.1 158/77(127) SB 0 (11) , No 9(A) pain 9:12:56 67 16 98 27.3 162/78(125) NSR 0 (11) , No 9(A) pain 9:17:16 62 16 92 0 125/68(100) NSR 0 (11) , No 9(A) pain 9:21:26 66 16 99 31.9 141/76(119) NSR 0 (11) , No 9(A) pain 9:25:32 66 14 99 0 127/66(111) NSR 2 (11) , 8(A) Uncomfortable 9:29:46 60 16 99 27.3 131/65(104) NSR 0 (11) , No 8(A) pain 9:34:00 66 14 98 34.9 123/67(83) NSR 0 (11) , No 8(A) pain 9:38:12 65 14 98 34.9 125/64(90) NSR 0 (11) , No 8(A) pain 9:42:24 61 14 99 34.9 125/68(104) NSR 0 (11) , No 8(A) pain 9:46:36 63 14 100 34.2 134/64(101) NSR 2 (11) , 8(A) Uncomfortable 9:50:50 61 14 100 31.9 148/69(117) NSR 0 (11) , No 8(A) pain 9:55:08 65 13 99 34.2 99/55(82) NSR 0 (11) , No 8(A) pain 9:59:10 65 13 99 35.7 115/64(89) NSR 0 (11) , No 8(A) pain 10:03:19 63 14 100 35 119/60(94) NSR 0 (11) , No 8(A) pain 10:07:33 64 14 100 33.4 100/57(77) NSR 0 (11) , No 8(A) pain 10:11:39 64 14 99 34.2 101/55(78) NSR 0 (11) , No 8(A) pain 10:15:43 61 15 99 32.7 117/64(87) NSR 2 (11) , 8(A) Uncomfortable 10:19:53 64 14 100 32.7 125/61(95) NSR 2 (11) , 8(A) Uncomfortable 10:24:07 64 13 99 34.9 105/63(88) NSR 2 (11) , 8(A) Uncomfortable 10:28:14 64 13 99 35.7 105/57(80) NSR 2 (11) , 8(A) Uncomfortable 10:32:22 62 13 99 35 104/56(73) NSR 2 (11) , 8(A) Uncomfortable 10:36:30 61 14 100 34.2 104/57(80) NSR 2 (11) , 8(A) Uncomfortable 10:40:36 62 14 100 34.2 107/61(84) NSR 2 (11) , 8(A) Uncomfortable 10:44:44 62 14 99 34.9 115/58(77) NSR 2 (11) , 8(A) Uncomfortable 10:48:56 61 14 100 33.4 113/58(84) NSR 2 (11) , 8(A) Uncomfortable Medications Time Medication Route Dose Verified Delivered Reason Notes Effe ctiveness by by 8:42:32 Lidocaine 1% added 20ml Zafar Stephen used for to vial Otis Berg MD procedure field GAGE 8:42:54 Heparin Flush added 3 bags Zafar Stephen used for Bag to Otis Berg MD procedure (1000units/500ml field GAGE NS) 8:43:07 Oxygen NC 3 Zafar Stephen used for l/min Otis Berg MD procedure 9:06:51 Fentanyl I.V. 50 mcg Zafar Bateman for Full y awake @ Mil Berg RN sedation 9:12:45 9:06:52 Versed I.V. 1 mg Zafar Bateman for Full y awake @ Mil Breg RN sedation 9:12:42 9:10:15 Versed I.V. 1 mg Zafar Givensody for Dozi ng Mil Berg RN sedation intermittently MD @ 9:12:52 9:10:22 Fentanyl I.V. 50 mcg Zafar Bateman for Dozi ng Mil Berg RN sedation intermittently MD @ 9:12:49 9:22:13 Heparin Bolus I.V. 5000 Zafar Bhavana Per units Mil Berg RN protocol 9:25:43 Versed I.V. 1 mg Zafar Bateman for Jazmin isabel @ Mil Berg RN sedation 9:48:41 9:25:51 Fentanyl I.V. 50 mcg Zafar Bhavana for Jazmin isabel @ Mil Berg RN sedation 9:48:38 9:49:54 Nitroglycerin I.C. 200mcg Zafar Bateman Per IC/IA Mil Berg RN protocol 9:50:02 Fentanyl I.V. 50 mcg Zafar Bateman for Jazmin isabel @ Mil Berg RN sedation 10:18:47 9:50:11 Versed I.V. 1 mg Zafar Givensody for Jazmin isabel @ Mil Berg RN sedation 10:18:50 10:06:27 Nitroglycerin I.C. 200mcg Zafar Bateman Per IC/IA Mil Berg RN protocol 10:17:21 Versed I.V. 1 mg Zafar Givensody for Mil Berg RN sedation 10:17:28 Fentanyl I.V. 50 mcg Zafar Bateman for Mil Berg RN sedation Procedure Log Time Note 8:32:51 Luis Fernando Rod RT (R) (CV) sent for patient. Start room use. 8:33:04 Time tracking: Regular hours (M-F 7:00 - 5:00) 8:33:08 Plan of Care:Hemodynamics will remain stable., Cardiac rhythm will remain stable., Comfort level will be maintained., Respiratory function will remain adequate., Patient/ family verbilizes understanding of procedure., Procedure tolerated without complication., Recovers from procedure without complications.. 8:33:12 Use device set IR Diagnostic 8:33:14 ACIST Syringe (77221) opened to sterile field. 8:33:14 ACIST Hand Control (55490) opened to sterile field. 8:33:15 ACIST Manifold (00330) opened to sterile field. 8:33:15 Bag Decanter (2002S) opened to sterile field. 8:33:16 Sterile Angiographic Pack opened to sterile field. 8:33:16 Tegaderm 4 x 4 (1626W) opened to sterile field. 8:33:25 Patient received from Outpatients to IR Alert and oriented. Tansferred to table in Supine position. 8:33:26 Correct patient and procedure confirmed by team. 8:33:28 Signed procedure consent form obtained from patient. 8:33:29 ECG and BP/O2 sat monitors applied to patient. 8:33:31 Full Disclosure recording started 8:33:32 - 8:33:36 H&P Date Dictated: 09/11/2017 H&P Addendum completed by physician on day of procedure. (MUST COMPLETE FOR ALL OUTPATIENTS). 8:33:36 Pre-procedure instructions explained to patient. 8:33:37 Pre-op teaching completed and patient verbalized understanding. 8:33:39 Family in waiting room. 8:33:52 Patient NPO since Midnight. 8:33:58 Is the patient allergic to Iodine/contrast media? No. 8:34:00 Is patient on blood thinner?Yes 8:34:03 ACC The patient was administered the following blood thiners within the last 24 hours: ACCAspirin 8:34:21 Patient diabetic? No. 8:34:29 If diabetic: On Metformin? No 8:34:34 ----Pre-sedation anethsthesia assessment.---- 8:34:37 Previous problem with sedation/anesthesia? No ? 8:34:45 Snore? No 8:34:47 Sleep apnea? No 8:34:48 Deviated septum? No 8:34:50 Opens mouth fully? Yes 8:34:51 Sticks out tongue? Yes 8:34:56 Airway obstruction? No ? 8:34:59 Dentures? Yes ? 8:42:32 Lidocaine 1% 20ml vial added to field was administered by Zafar Berg MD; used for procedure; 8:42:54 Heparin Flush Bag (1000units/500ml NS) 3 bags added to field was administered by Zafar Berg MD; used for procedure; 8:43:07 Oxygen 3 l/min NC was administered by Zafar Berg MD; used for procedure; 8:49:16 Vital chart was started 8:59:34 Pre procedure: right dorsailis pedis pulse Doppler 8:59:38 Pre procedure: left dorsailis pedis pulse Doppler 8:59:41 Pre procedure: right posterior tibial pulse Doppler 8:59:44 Pre procedure: left posterior tibial pulse Doppler 8:59:49 Patient pain scale 0/10 no. 9:00:01 IV patent on arrival in left hand with 0.9% NaCl at 50ml/hr. 9:00:05 Alarms reviewed by RDavid N. 9:00:06 Sharps counted by scrub and verified by R.N. 9:00:10 Left groin area was prepped with chlora-prep and draped in sterile fashion 9:00:23 Baseline sample Acquired. 9:00:24 Baseline sample Acquired. 9:06:41 Physician arrived 9::43 --------ALL STOP TIME OUT------ :43 Final Timeout: patient, procedure, and site verified with staff and physician. All members of the team are in agreement. 9:06:46 Left groin site verified by team. 9:06:51 Fentanyl 50 mcg I.V. was administered by Bhavana Mil RN; for sedation ; 9::52 Versed 1 mg I.V. was administered by Bhavana Jaeger RN; for sedation; 9::54 Sedation plan: IV Moderate Sedation Medication:Versed, Fentanyl 9:10:10 Procedure started. 9:10:14 Local anesthetic to left femerol artery with Lidocaine 1% by aZfar Berg MD.INITIAL ACCESS ONLY 9:10:15 Versed 1 mg I.V. was administered by Bhavana Jaeger RN; for sedation; 9::22 Fentanyl 50 mcg I.V. was administered by Bhavana Jaeger RN; for sedation ; 9::29 A 5 Fr sheath was inserted into the Left Femoral artery 9:10:31 Micropuncture VSI 4FR kit opened to sterile field. 9:10:32 DOC .035 wire (L93008) opened to sterile field. 9:10:32 TUBING Contrast Injection High Pressure (BYD895G) opened to sterile field. 9:10:32 SHEATH 5FR Bicknell (LXH570) opened to sterile field. 9:11:40 TUBING Contrast Injection High Pressure (JNK786C) opened to sterile field. 9:12:42 Effectiveness of Versed delivered @ 9:06:52 is: Fully awake 9:12:45 Effectiveness of Fentanyl delivered @ 9:06:51 is: Fully awake 9:12:49 Effectiveness of Fentanyl delivered @ 9:10:22 is: Dozing intermittently 9:12:52 Effectiveness of Versed delivered @ 9:10:15 is: Dozing intermittently 9:22:13 Heparin Bolus 5000 units I.V. was administered by Bhavana Jaeger RN; Per protocol; 9:22:55 TORQUE DEVICE PLASTIC .038 ( TD01) opened to sterile field. 9:22:56 CXI Catheter 90cm (C95477) opened to sterile field. 9:22:56 GLIDE WIRE ANGLE 180cm (LV4401) opened to sterile field. 9:22:57 GLIDE CATHETER 5FR ANGLED 65cm (CG507) opened to sterile field. 9:25:43 Versed 1 mg I.V. was administered by Bhavana Jaeger RN; for sedation; ::51 Fentanyl 50 mcg I.V. was administered by Bhavana Jaeger RN; for sedation ; 9:26:17 CHOICE PT Extra Support J 300cm guide wire ([id number]) opened to steril e field. 9:35:15 Pass Number: 1 A LASER Turbo-Elite 1.7 OTW atherectomy catheter ([id number] ) was advanced to the Mid Popliteal, Left. Laser Begun. Frequency: 40 Power: 40 9:43:56 Pass Number: 2 A LASER Turbo-Elite 1.7 OTW atherectomy catheter ([id number] ) was advanced to the Mid Popliteal, Left. Laser Begun. Frequency: 50 Power: 50 9:45:18 Pass Number: 3 A LASER Turbo-Elite 1.7 OTW atherectomy catheter ([id number] ) was advanced to the Mid Popliteal, Left. Laser Begun. Frequency: 60 Power: 50 9:48:38 Effectiveness of Fentanyl delivered @ 9:25:51 is: Sedated 9:48:41 Effectiveness of Versed delivered @ 9:25:43 is: Sedated 9:49:54 Nitroglycerin IC/IA 200mcg I.C. was administered by Bhavana Jaeger RN; Per protocol; 9:50:02 Fentanyl 50 mcg I.V. was administered by Bhavana Jaeger RN; for sedation ; 9:50:11 Versed 1 mg I.V. was administered by Bhavana Jaeger RN; for sedation; 9:50:30 Pass Number: 4 A LASER Turbo-Elite 1.7 OTW atherectomy catheter ([id number] ) was advanced to the Mid Popliteal, Left. Laser Begun. Frequency: 80 Power: 60 9:57:53 INFLATOR BasixTOUCH (PA0589) opened to sterile field. 9:58:34 Inflate balloon Inflation number: 1 A IN.PACT Admiral 4 x 60 x 130 DCB Balloon ([id number]) was prepped and advanced across the Mid Popliteal, Left, then inflated 9:59:24 treatment time 2.59 sec and pulses 10,636 10:06:27 Nitroglycerin IC/IA 200mcg I.C. was administered by Bhavana Jaeger RN; Per protocol; 10:07:58 Inflate balloon Inflation number: 2 A Evercross 5 x 4 x 135 Balloon ([id number]) was prepped and advanced across the Mid Popliteal, Left, then inflated 10:16:43 Sheath removed intact; hemostasis achieved with Manual Compression to the Left Femoral artery. 10:17:21 Versed 1 mg I.V. was administered by Bhavana Jaeger RN; for sedation; 10:17:28 Fentanyl 50 mcg I.V. was administered by Bhavana Jaeger RN; for sedation ; 10:18:47 Effectiveness of Fentanyl delivered @ 9:50:02 is: Sedated 10:18:50 Effectiveness of Versed delivered @ 9:50:11 is: Sedated 10:20:27 Procedure ended.(Physican Out) 10:20:40 Fluoroscopy time 08.60 minutes. 10:20:45 Fluoroscopy dose: 95 mGy 10:20:45 Flurop Dose total: 95 10:20:55 Contrast amount:Isovue 300 90ml. 10:21:00 Sharps counted by scrub and verified by R.N. 10:35:39 Insertion/operative site no bleeding no hematoma. 10:35:42 Post-op/insertion site Left Femoral artery dressed using a 4 x 4 and Tegaderm. 10:35:47 Post left femerol artery:stable 10:35:50 Post Procedure Pulses reassessed and unchanged 10:49:34 Post procedure instruction explained to patient.Patient verbalizes understanding. 10:49:35 Procedure and supply charges have been captured, reviewed, submitted an d are correct. 10:49:38 Report given to Outpatients. 10:49:42 Patient transfered to Outpatients with Stretcher. 10:50:10 Vital chart was stopped Intervention Summary Intervention Notes Time ActionType Lesion and Equipment Used Action# Pressure Duration Attributes 9:35:15 Laser pass Mid LASER Popliteal, Turbo-Elite 1.7 Left OTW atherectomy catheter ([id number]) 9:43:56 Laser pass Mid LASER Popliteal, Turbo-Elite 1.7 Left OTW atherectomy catheter (485456) 9:45:18 Laser pass Mid LASER Popliteal, Turbo-Elite 1.7 Left OTW atherectomy catheter (050317) 9:50:30 Laser pass Mid LASER Popliteal, Turbo-Elite 1.7 Left OTW atherectomy catheter (540118) 9:58:34 Inflate Mid IN.PACT Admiral 1 0 00:00 balloon Popliteal, 4 x 40 x 130 Left DCB Balloon ([id number]) 10:07:58 Inflate Mid Evercross 5 x 4 2 0 00:00 balloon Popliteal, x 135 Balloon Left ([id number]) Device Usage Item Name Manufacture Quantity Catalog Number Hospital Part Current M inimal Lot# / Charge Number Stock Stock Serial# Code ACIST Syringe Acist 1 33636 842320 600485 885079 2 0 (02217) [employer] Inc ACIST Hand Acist 1 11303 369853 503246 711848 5 Control (64309) [employer] Inc ACIST Manifold Acist 1 28919 397699 783920 129894 5 (63771) [employer] Systems Inc Bag Decanter Microtek 1 2001S 515741 66538 130979 5 (2001S) Medical Inc. Sterile Cardinal 1 [id number] 898827 737114 5 Angiographic Health Pack Tegaderm 4 x 4 3M 1 1626W 207291 558508 103055 5 (1626W) Micropuncture VSI VASCULAR 1 7266V 729422 791950 5 VSI 4FR kit SOLUTIONS DOC .035 wire Cook Medical 1 F32406 385265 337954 5 1011868 (Y88211) TUBING Contrast Merit 2 [id number] 126824 478402 850681 5 Injection High Medical Pressure (RWY389V) SHEATH 5FR Terumo 1 QVG084 189998 682906 747040 4 0 Bicknell (QAN231) TORQUE DEVICE Hays 1 TD01 777349 115032 430413 5 PLASTIC .038 ( Scientific TD01) CXI Catheter [employer] Medical 1 I65384 118021 442058 347813 5 [id number] 90cm (G83634) GLIDE WIRE Terumo 1 CX1407 575145 074523 890371 5 ANGLE 180cm (FM8948) GLIDE CATHETER Terumo 1 CG507 599134 373316 5 5FR ANGLED 65cm (CG507) CHOICE PT Extra Hays 1 [id number] 298981 499186 204678 5 [id number] Support J 300cm Scientific guide wire ([id number]) LASER Kisha 1 417152 146241 760107 084590 5 [id number] Turbo-Elite 1.7 Healthcare OT atherectomy (443347) catheter (209784) INFLATOR Merit 1 ZE0855 196317 819111 048442 5 [id number] ContentDJ (PM4676) IN.PACT Admiral Medtronic 1 [id number] 921407 160883 872268 5 4 x 40 x 130 DCB Balloon ([id number]) Evercross 5 x 4 Medtronic 1 [id number] 468833 459399 569814 5 [id number] x 135 Balloon ([id number]) Signature Audit [place] Stage Time Signature Unsigned Intra-Procedure 09/11/2017 Luis Fernando 10:50:07 AM Marcel RT (R) (CV) Signatures Monitor : Luis Fernando Signature : Marcel RT Date : Time : [address] [address]
[2017-09-11 07:00] LABS: BASOPHILS 0.5 % (0-2); EOSINOPHILS 1.8 % (0-7); HEMATOCRIT 39.3 % (42.0-54.0); HEMOGLOBIN 13.6 g/dL (13.5-17.5); IMMATURE GRANULOCYTES 1.2 % (0-5); LYMPHOCYTES 20.1 % (15-50); MCH 32.8 pg (26.0-34.0); MCHC 34.6 g/dL (31.0-37.0); MCV 94.7 fL (80.0-100.0); MEAN PLATELET VOLUME 10.1 fL (7.4-10.4); MONOCYTES 9.2 % (2-11); NEUTROPHILS 67.2 % (40-80); RBC 4.15 10x6/uL (4.20-6.10); WBC 7.6 10x3/uL (4.8-10.8)
[2017-09-11 07:01] LABS: PLATELET COUNT 165 10x3/uL (130-400)
[2017-09-11 07:07] LABS: INR 0.96 (0.85-1.17); PROTIME 12.4 SECONDS (11.6-15.0)
[2017-09-11 07:08] LABS: APTT 28.2 SECONDS (22.8-39.4)
[2017-09-11 07:23] LABS: ANION GAP 11.1 mmol/L (8-16); CARBON DIOXIDE 30.2 mmol/L (21.0-32.0); CREATININE - SERUM 1.4 mg/dL (0.6-1.3); POTASSIUM - SERUM 3.3 mmol/L (3.5-5.1)
[2017-09-11 07:43] VITALS: BP 147/64; Ht 172.7 cm; Wt 75.0 kg
[2017-09-25] MEDS ORDERED: TOPROL XL25 MG PO (11:07)
== END 2017-09-11 16:45 | disposition home or self-care (01) ==
LOC: D.SP 06:31 → D.RAD 09:00 → D.SP 16:45
PROVIDERS: General Practice
DX: I70.222 Atherosclerosis of native arteries of extremities with rest pain, left leg (principal); Z01.812 Encounter for preprocedural laboratory examination

== ENCOUNTER 2017-09-28 05:15 | Inpatient (IN) | payer MEDICARE, OTHER ==
[2017-09-25 12:22] LABS: APPEARANCE CLEAR (CLEAR); BILIRUBIN NEGATIVE (NEGATIVE); COLOR YELLOW (YELLOW); GLUCOSE NEGATIVE (NEGATIVE); HEMATOCRIT 43.4 % (42.0-54.0); HEMOGLOBIN 14.9 g/dL (13.5-17.5); KETONE NEGATIVE (NEGATIVE); MCHC 34.3 g/dL (31.0-37.0); MEAN PLATELET VOLUME 11.1 fL (7.4-10.4); NITRITE NEGATIVE (NEGATIVE); PROTEIN NEGATIVE (NEGATIVE); RBC 4.52 10x6/uL (4.20-6.10); RDW 13.2 % (11.5-14.5); SPECIFIC GRAVITY 1.015 (1.005-1.020); UROBILINOGEN NORMAL (NORMAL)
[2017-09-25 12:45] LABS: INR 0.95 (0.85-1.17); PROTIME 12.3 SECONDS (11.6-15.0)
[2017-09-25 12:50] LABS: ALBUMIN 3.8 g/dL (3.4-5.0); ANION GAP 11.2 mmol/L (8-16); BILIRUBIN - TOTAL 0.52 mg/dL (0.2-1.3); CALCIUM 9.2 mg/dL (8.5-10.1); CARBON DIOXIDE 30.3 mmol/L (21.0-32.0); CREATININE - SERUM 1.4 mg/dL (0.6-1.3); POTASSIUM - SERUM 3.5 mmol/L (3.5-5.1); PROTEIN - SERUM 7.2 g/dL (6.4-8.2)
[2017-09-27 20:30] VITALS: BP 117/54
[2017-09-28] VITALS (43 sets, daily range): BP systolic 80–135; BP diastolic 42–82; BMI 25.7
[~2017-09-28] VITALS: Ht 172.7 cm; Wt 76.7 kg
--- NOTE | ~2017-09-28 | OP ---
PATIENT NAME: MARBIN SAMSON MEDICAL RECORD: [id number] :41 LOCATION:[facility] ADMISSION DATE:09/28/17 SURGEON: CORKY CARRENO MD DATE OF OPERATION: 09/28/2017 SURGEON: Corky Carreno MD ANESTHESIA: General endotracheal, Dr. Roque. OPERATION PERFORMED: 1. Left common femoral, profunda femoral, and superficial femoral artery endarterectomy. 2. Right to left femoral-femoral bypass utilizing a 6-mm beaded Impra graft. PREOPERATIVE DIAGNOSIS: Rest pain, left lower extremity. POSTOPERATIVE DIAGNOSIS: Rest pain, left lower extremity. INDICATION FOR OPERATION: Rest pain, left lower extremity. FINDINGS AT OPERATION: Rest pain, left lower extremity. 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 The right femoral artery was diseased posteriorly, but had good caliber vessel for bypass. 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 The left femoral plaque was sent to pathology. ESTIMATED BLOOD LOSS: Less than 150 mL. DESCRIPTION OF PROCEDURE: After informed consent, adequate preoperative medication evaluation, the patient was brought to the operating room, placed on the table in the supine position. After induction of general endotracheal anesthesia and application of appropriate monitoring devices, the patient prepped and draped in a sterile field, utilizing Betadine scrub, alcohol, and Betadine solution, a Betadine-impregnated drape was also used. An oblique incision was made over the skin crease. Dissection carried down the fascia. Hemostasis maintained with electrocautery. The distal superficial femoral artery, common femoral artery, profunda femoral artery, and superficial femoral arteries were dissected free of surrounding tissues and encircled with vessel loops. Attention was then turned toward the preperitoneal space and under direct vision, the peritoneum was dissected free of the rectus muscle. Attention was then turned toward the right groin. Incision was made above the inguinal ligament. Dissection carried down the fascia. Hemostasis maintained with electrocautery. The distal superficial femoral artery and common femoral artery were dissected free of surrounding structures and surrounded with vessel loops. Attention was then turned toward the preperitoneal space and the 2 preperitoneal areas were dissected free of the rectus and a Cortez tunneler placed behind, a 6 mm beaded graft was threaded through. The patient was given a calculated dose of heparin on the right. Clamps were applied. The artery opened and end-to-side anastomosis to the graft was made utilizing running 6-0 Prolene suture. A clamp was then placed on the graft and the vessel revascularized. Hemostasis was assured. OPERATIVE REPORT [id number] MARBIN SAMSON Attention was then turned towards the left leg. The clamps were placed on the left external iliac artery as well as the distal superficial femoral artery and profunda femoral artery. The common femoral artery was opened and the incision extended proximally and distally past the superficial femoral artery stenosis. Utilizing sharp dissection, the plaque was mobilized and the common femoral artery and distal external iliac artery as well as in the superficial femoral artery. The profunda femoral artery then underwent endarterectomy as well with removal of the plaque. All maneuvers to remove debris were performed. The endarterectomy incision was approximately 10 cm utilizing the graft as a patch and long anastomosis. This was accomplished utilizing running 6-0 Prolene suture. All maneuvers to remove trapped air were performed. The clamps were removed sequentially. There was excellent flow distally in the left arterial system. The patient was given a calculated dose of protamine to reverse the heparin. Hemostasis was assured. Wound was irrigated with copious amounts of antibiotic solution and normal saline. Hemostasis was assured. The instrument count and sponge counts were correct times 2. The wound was closed in layers utilizing 2-0 Vicryl on deep subcutaneous tissue, 5-0 subcuticular Monocryl on the skin. Sterile dressings were applied. The patient tolerated the procedure well and transferred to CV ICU in satisfactory condition. TRANSINT:[id number] Voice Confirmation ID: [id number] DOCUMENT ID: [id number] CORKY CARRENO MD at 1303 CC: [id number] DICTATION DATE: 09/28/17 1213 POST ACUTE CARE NURSE PRACTITIONER: 09/28/17 1237 DIS IN 09/30/17 [facility] [address] [place] [address]
--- NOTE | ~2017-09-28 | HP ---
PATIENT: MARBIN SAMSON MEDICAL RECORD: [id number] ACCOUNT: [id number] LOCATION:[facility] : 41 ADMISSION DATE: 09/28/17 HISTORY AND PHYSICAL EXAMINATION MARBIN Harris (72yo, M) ID# [id number]. Date/Time09/24/2017 11:[id number] [facility] Dept.[facility] ClinicProviderEDDAVINA VERAS MDInsuranceMed Primary: [place]ICARE-[place] (MEDICARE) Insurance # : [id number] PCP : CORTNEY RAMIREZ Referring Provider Name : CORTNEY RAMIREZ Employer Name : UNKNOWN Med Secondary: FOR LIFE ( - MEDICARE SUPPLEMENT) Insurance # : [id number] Employer Name : RETIRED Prescription: ESI1 - Member is eligible. Chief Complaint Followup: Peripheral arterial occlusive disease Followup: Limb pain at rest due to atherosclerosis of igiugig artery s/p IR intervention 08/31/17 and 09/11/17 preop visit for R to L fem fem and L fem pop Patient's Care Team Primary Care Provider (): CORTNEY RAMIREZ: [address], [place] [address], , Referring Provider (): CORTNEY RAMIREZ: [address], [place] [address], , Vitals BP:122/66 sitting L arm 09/24/2017 12:01 pmBP Cuff Size:adult 09/24/2017 12:01 pmHR:52,reg 09/24/2017 12:01 pmHt:5 ft 8 in 09/24/2017 11:46 amWt:169 lbs 09/24/2017 12:01 pmNotes:ready to schedule his surgery 09/24/2017 12:01 pmBMI:25.7 09/24/2017 12:01 pmAllergies Reviewed Allergies NKDAMedications Reviewed Medications allopurinol 100 mg tablet Take 1 tablet(s) every day by oral route.09/21/17 filledMEDCOaspirin 325 mg tablet Take 1 tablet(s) every day by oral route.04/23/[facility] Wilsonclopidogrel 75 mg badenc00/30/18 filledMEDCOFish Oil 300 mg capsule Take by oral route.02/27/17 [facility] WilsonhydroCHLOROthiazide 25 mg tablet Take 1 tablet(s) every day by oral route.09/21/17 filledMEDCOmetoprolol succinate ER 25 mg tablet,extended release 24 hr Take 1 tablet(s) every day by oral route.09/21/17 filledMEDCOnaproxen 500 mg ylovtp55/30/18 filledMEDCONiacin (niacinamide) 500 mg tablet Take by oral route.02/27/17 [facility] WilsonraNITIdine 150 mg tablet Take 1 tablet(s) twice a day by oral route.09/21/17 filledMEDCOrosuvastatin 10 mg tablet Take 1 tablet(s) every day by oral route.05/24/17 filledMEDCOrosuvastatin 20 mg oeobgw19/02/18 filledMEDCOrosuvastatin 40 mg /30/18 filledMEDCOtamsulosin 0.4 mg capsule Take 1 capsule(s) every day by oral route.09/21/17 filledMEDCOProblems Reviewed Problems Coronary atherosclerosis - Onset: 04/23/2017 Limb pain at rest due to atherosclerosis of igiugig artery - Onset: 04/23/2017 Peripheral arterial occlusive disease - Onset: 02/27/2017 HISTORY AND PHYSICAL [id number] MARBIN SAMSON Family History Reviewed Family History Father- Malignant tumor of lungMother- Cerebrovascular accidentSister- Cerebrovascular accident - Hypertensive disorder - Malignant neoplastic diseaseSocial History Reviewed Social History Cardiology Family history of heart disease?: Y Smoking Status: Current every day smoker Smoker (1 PPD) High Cholesterol: Y High blood pressure: Y Overweight: N Obese: N Diabetes: N Alcohol intake: Occasional Surgical History Reviewed Surgical History HERNIA REPAIR 1968 KIDNEY STONES 2004 NECK 11/19/2016 DR YEBOAH Past Medical History Reviewed Past Medical History 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 HPI Peripheral Vascular Disease Reported by patient. 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 He reports chest pain on exertion but reports no arm pain on exertion, no shortness of breath when walking, no shortness of breath when lying down, no palpitations, and no known heart murmur. He reports shortness of breath but reports no cough, no wheezing, and no coughing up blood. He reports no dry eyes, no irritation, and no HISTORY AND PHYSICAL [id number] MARBIN SAMSON A vision change. He reports no difficulty hearing and no ear pain. He reports no frequent nosebleeds and no no se/sinus problems. He reports no sore throat, no bleeding gums, no snoring, no dry mouth, no mouth ulcers, no oral abnormalities, and no teeth problems. He reports no jugular vein distension and no swollen glands. He reports no abdominal pain, no vomiting , normal appetite, no diarrhea, not vomiting blood, no nausea, and no constipation. He reports no incontinence, no difficulty urinating, no hematuria, and no increased frequency. He reports no muscle aches, no muscle weakness, no arthralgias/joint pain, no back pain, and no swelling in the extremities. He reports no abnormal mole, no jaundice, and no rashes. He reports no loss of consciousness, no weakness, no numbness, no seizures, no dizziness, and no headaches. He reports no depression, no sleep disturba nces, feeling safe in relationship, and no alcohol abuse. He reports no fatigue. He reports no swollen glands and no bruising. He reports no runny nose, no sinus pressure, no itching, no hives, and no frequent sneezing. ROS as noted in the HPI Physical Exam Patient is a 72-year-old male. Constitutional: General Appearance well nourished and developed and healthy-appearing. Level of Distress NAD. Ambulation limited ambulation. Cardiovascular: Apical Impulse not displaced or no thrill. Heart Auscultation no rmal s1 and s2; no murmurs, rubs, or gallops; and RRR. Arterial Pulses no abdominal aorta bruits, femoral bruits, or popliteal bruits; femoral diminished (bilateral), popliteal not palpable (left), and dorsalis pedis not palpable (bilateral); and 2+ bilateral, carotid 2+ bilateral, and femoral 2+ bilateral. Edema no edema or varicosities. Lungs: Repiratory Effort no dyspnea. Percussion no dullness or flatness and hyperresonance . Auscultation no wheezing, rhonchi, or rales / crackles and breathing sounds normal, good air movement, and CTA except as noted. Abdomen: Bowl Sounds normal. Inspection and Palpation no tenderness, guarding, masses, or rebound tenderness and soft and non-distended. Liver non-tender and no hepatomegaly. Spleen non-tender and no splenomegaly. Hernia none palpable. Musculoskeletal System: Gait And Stance normal gait and stance. Digits and Nails normal nails and no cyanosis. Neurologic: Cranial Nerves grossly intact. Reflexes DTRs 2+ bilaterally throughout. Sensation grossly intact. Lymph Nodes: Lymph Nodes no cervical LAD, supraclavicular LAD, axillary LAD, or inguinal LAD. Eyes: Lids and Conjunctivae no discharge or pallor and non-injected. Pupils PERRLA. Cornea grossly intact. EOM EOMI. Lens clear. Sclerae non-icteric. Neck: Neck no masses, enlarged lymph nodes, or carotid bruits and supple and trachea midline. Thyroid no enlargement or nodules and non-tender. Skin: Inspection and Palpation no rash, lesions, ulcers, jaundice, or abnormal nevi. Assessment / Plan peripheral arterial disease with occlusion of left iliac HISTORY AND PHYSICAL [id number] MARBIN SAMSON 1. Limb pain at rest due to atherosclerosis of igiugig artery I70.223: Atherosclerosis of igiugig arteries of extremities with rest pain, bilateral legs 2. Peripheral arterial occlusive disease I73.9: Peripheral vascular disease, unspecified PERIPHERAL ARTERIAL DISEASE OF THE LEG: CARE INSTRUCTIONS Discussion Notes interventional radiology was able to open his popliteal artery nicely They were unable to open the left iliac artery He is a candidate for [id number] femoral-femoral bypass I have discussed his disease process with him in detail as well as the alternative methods of treatment were discussed femoral-femoral bypass carotid and the expected benefits and risks which include bleeding, infection, stroke, de ath, and there imponderables. He understands all the above and wishes to proceed with planned surgery Schedule femoral artery femoral artery bypass ESA VERAS MD at 1318 CC: [id number] DICTATION DATE: 09/24/17 1110 [employer]CHNICIAN: DM 09/25/17 132[id number] [place] [address]
[~2017-09-28 05:15] MED LIST changes: +TOPROL XL25 MG PO
[2017-09-28 14:13] LABS: HEMATOCRIT 37.1 % (42.0-54.0); HEMOGLOBIN 12.5 g/dL (13.5-17.5)
[2017-09-29] VITALS (24 sets, daily range): BP systolic 24–160; BP diastolic 58–87; Ht 172.7 cm; Wt 76.7 kg
[2017-09-29 06:16] LABS: ALBUMIN 2.4 g/dL (3.4-5.0); ANION GAP 9.6 mmol/L (8-16); BILIRUBIN - TOTAL 0.4 mg/dL (0.2-1.3); CREATININE - SERUM 1.2 mg/dL (0.6-1.3); POTASSIUM - SERUM 3.6 mmol/L (3.5-5.1)
[2017-09-29 06:29] LABS: HEMATOCRIT 35.5 % (42.0-54.0); HEMOGLOBIN 11.8 g/dL (13.5-17.5); MCH 32.1 pg (26.0-34.0); MCHC 33.2 g/dL (31.0-37.0); MCV 96.5 fL (80.0-100.0); RBC 3.68 10x6/uL (4.20-6.10); RDW 13.6 % (11.5-14.5); WBC 7.2 10x3/uL (4.8-10.8)
[2017-09-29 07:14] LABS: PLATELET COUNT 86 10x3/uL (130-400)
[2017-09-29 07:15] LABS: PLATELET ESTIMATE DECREASED
[2017-09-30] VITALS (11 sets, daily range): BP systolic 129–163; BP diastolic 64–76
== END 2017-09-30 11:15 | disposition home or self-care (01) | DRG 253 ==
LOC: D.SDCHOLD 05:15 → D.CVICU 05:15 → D.SDCHOLD 07:30 → D.CVICU 08:55
PROVIDERS: Internal Medicine Cardiovascular Disease
PROC: 04CL0ZZ Extirpation of Matter from Left Femoral Artery, Open Approach (ICD-10-PCS; principal; 2017-09-28 07:30)
PROC: 041K0JJ Bypass Right Femoral Artery to Left Femoral Artery with Synthetic Substitute, Open Approach (ICD-10-PCS; 2017-09-28 07:30)
DX: I70.233 Atherosclerosis of native arteries of right leg with ulceration of ankle (principal); I70.92 Chronic total occlusion of artery of the extremities; I25.10 Atherosclerotic heart disease of native coronary artery without angina pectoris; F17.200 Nicotine dependence, unspecified, uncomplicated; E78.00 Pure hypercholesterolemia, unspecified; I10 Essential (primary) hypertension; E78.5 Hyperlipidemia, unspecified; D45 Polycythemia vera

== ENCOUNTER → 2018-04-23 07:54 | Outpatient (CLI) | payer MEDICARE, OTHER ==
[2017-09-29 10:02] VITALS: BMI 25.7
== END | disposition home or self-care (01) ==
LOC: D.CT 07:54
DX: R91.1 Solitary pulmonary nodule (principal)

== ENCOUNTER → 2018-10-15 10:55 | Outpatient (CLI) | payer MEDICARE, OTHER ==
[2017-09-29 10:02] VITALS: BMI 25.7
== END | disposition home or self-care (01) ==
LOC: D.CT 10:55
PROVIDERS: ATTEND Clinical Nurse Specialist Family Health
DX: R91.1 Solitary pulmonary nodule (principal)

== ENCOUNTER → 2018-11-01 12:22 | Outpatient (CLI) | payer MEDICARE, OTHER ==
[2017-09-29 10:02] VITALS: BMI 25.7
== END | disposition home or self-care (01) ==
LOC: D.US 09:00
PROVIDERS: ATTEND Internal Medicine Cardiovascular Disease
DX: I73.9 Peripheral vascular disease, unspecified (principal)

== ENCOUNTER → 2018-11-08 14:44 | Outpatient (CLI) | payer MEDICARE, OTHER ==
[2017-09-29 10:02] VITALS: BMI 25.7
== END | disposition home or self-care (01) ==
LOC: D.CT 14:44 → D.US 16:00
PROVIDERS: ATTEND Internal Medicine Cardiovascular Disease
DX: I73.9 Peripheral vascular disease, unspecified (principal)

== ENCOUNTER → 2019-10-25 14:35 | Outpatient (CLI) | payer MEDICARE, OTHER ==
[2017-09-29 10:02] VITALS: BMI 25.7
== END | disposition home or self-care (01) ==
LOC: D.CT 14:35
PROVIDERS: ATTEND General Practice
DX: R91.8 Other nonspecific abnormal finding of lung field (principal)